=== PATIENT | female | born 1980 | race Caucasian/White ===

== ENCOUNTER 2016-05-15 20:14 | Emergency (ER) | payer BC ==
--- NOTE | 2016-05-15 23:57 | DIAGNOSTIC IMAGING REPORT ---
PROCEDURE: XR CHEST 2 VIEW INDICATION: Compared to chest x-ray on 01/17/2014. TECHNIQUE: PA and lateral views. COMPARISON: None. FINDINGS: Lungs are clear. Heart and mediastinum are normal. Postoperative changes and fusion of the lower cervical spine. Thorax is otherwise normal. IMPRESSION: 1. Negative chest.
--- NOTE | 2016-05-15 23:59 | DIAGNOSTIC IMAGING REPORT ---
PROCEDURE: US ABDOMEN ULTRASOUND-LIMITED INDICATION: RUQ PAIN TECHNIQUE: Mcleod scale and color Doppler sonographic images of the abdomen were obtained. COMPARISON: None. FINDINGS: Gallbladder is partially contracted. No evidence of gallstones. Common duct is normal (3 mm). Portions of the liver, pancreas, and right kidney are seen, and are normal. IMPRESSION: 1. Negative ultrasound of the gallbladder and right upper quadrant.
--- NOTE | 2016-05-16 00:17 | DIAGNOSTIC IMAGING REPORT ---
PROCEDURE: CT ABD/PELVIS WITH CONTRAST INDICATION: Abdominal pain. Cough. History of appendectomy and hysterectomy. TECHNIQUE: 125 ml of Isovue 300 were injected intravenously and axial images were obtained of the entire abdomen and pelvis with sagittal and coronal reformations. COMPARISON: Compared to abdominal ultrasound earlier in the day (05/15/2016). FINDINGS: ABDOMEN: Gallbladder is mildly contracted. Liver, spleen, pancreas, kidneys, and aorta are normal. Bowel pattern is normal. PELVIS: Status post hysterectomy. Adnexal structures appear normal. No evidence of free fluid. IMPRESSION: 1. Mildly contracted gallbladder (nonspecific finding). 2. Status post hysterectomy. 3. Otherwise negative CT abdomen and pelvis. 4. Findings discussed with Dr. Karsten Mathis. All CT scans at this facility use dose modulation, iterative reconstruction, and/or weight-based dosing when appropriate to reduce radiation dose to as low as reasonably achievable.
--- NOTE | 2016-05-16 01:41 | ED ORDER SUMMARY ---
..... Patient: NADINE PERRY OrderSheet [facility] VisitID: [id number] [place] [address] 36y, F Registration Date/Time: 05/15/2016 ORDER SHEET Weight: 68.0 kg (stated) Allergies: Amytriptilline, ASA, Benzos, Latex, Reglan, Sulfa Drugs, Toradol, Valium, Vicodin, Xanax GENERAL ORDERS: Chest 2V Urgent (22:07 05/15/2016 EKoroleva P.A.-C) (Ack 22:10 MSouse ER Tech1) (22:25 MCampbell) US Abdomen Limited (No) Urgent (22:15 05/15/2016 EKoroleva P.A.-C) (22:24 MCampbell) CBC w Diff Urgent (22:15 05/15/2016 EKoroleva P.A.-C) (Ack 22:25 NHouse ER Tech1) (22:38 RCollier R.N.) CMP Urgent (22:15 05/15/2016 EKoroleva P.A.-C) (Ack 22:25 NHouse ER Tech1) (22:38 RCollier R.N.) Lipase Urgent (22:15 05/15/2016 EKoroleva P.A.-C) (Ack 22:25 NHouse ER Tech1) (22:38 RCollier R.N.) UA-Culture if indicated Urgent (22:59 05/15/2016 EKoroleva P.A.-C) (Ack 23:10 LMuller) (0:56 LMuller) Amylase Urgent (23:10 05/15/2016 Mauricio WYNNE) (23:10 LMuller) CT Abd/Pel w Cont (No) (See report) Urgent (23:17 05/15/2016 Mauricio WYNNE) (Ack 23:19 LMuller) (23:33 RCollier R.N.) D-Dimer Urgent (00:06 05/16/2016 Mauricio WYNNE) (0:19 LMuller) MEDICATION ORDERS: IV FLUIDS: Dilaudid IV 0.5 mg (HIGH ALERT MEDICATION, NOW) (22:23 05/15/2016 EKoroleva P.A.-C) (Ack 22:24 RCollier R.N.) (22:36 RCollier R.N.) IV Saline Lock (22:23 05/15/2016 EKoroleva P.A.-C) (Ack 22:24 RCollier R.N.) Zofran IV 4 mg (NOW) (22:36 05/15/2016 RCollier R.N. per protocol) (22:38 RCollier R.N.) Dilaudid IV 0.5 mg (HIGH ALERT MEDICATION, NOW) (23:17 05/15/2016 Mauricio WYNNE) (Ack 23:20 RCollier R.N.) (23:30 RCollier R.N.) IV NS : initial bolus 500 mL (1000 mL/hr), then 125 mL/hr for 4h (NOW); Urgent (23:18 05/15/2016 Mauricio WYNNE) (Ack 23:20 RCollier R.N.) (23:31 RCollier R.N.) Dilaudid IV 0.5 mg (HIGH ALERT MEDICATION, NOW) (01:31 05/16/2016 RCollier R.N. verbal order read back to Mauricio WYNNE) (1:31 RCollier R.N.) ORDER SHEET NOTES: [Electronically signed by Amanda Brar R.N. (02:04 05/16/2016)] [Electronically signed by Karsten Mathis MD (18:52 05/19/2016)] [Electronically locked/signed by Amanda Brar R.N. (02:04 05/16/2016)]
--- NOTE | 2016-05-16 01:41 | ED NURSING NOTES ---
Clinical Report - Nurses [facility] [place] [address] 05/15/2016 20:15 Patient: NADINE PERRY TRIAGE Triage time 22:04. Acuity: LEVEL 4. Chief Complaint: (right sided rib pain.). --22: Amanda Brar R.N. 22:04 05/15/16. BP: 109/78. HR: 78. RR: 18. O2 saturation: 100% on room air. Temp: 98 F (oral). Gilbert-Lozano pain scale: 8/10. --22: Amanda Brar R.N. Weight: 68 kg stated. Height/Length: 64 inches Per Patient. BMI: 25.8. --22: Amanda Brar R.N. Medications None. --22: Amanda Brar R.N. Allergies Amytriptilline. ASA. Benzos. Latex. Reglan. Sulfa Drugs. Toradol. Valium. Vicodin. Xanax. --22: Amanda Brar R.N. History Arrived by private vehicle. Historian: patient. Primary physician (Ayush). ( pt reports having cough and two days ago ribs on right side began and is getting worse today.). Onset. (about 2 days ago). Treatment FOOD TASTER: None. PAST MEDICAL HX: Immunizations: up-to-date. SOCIAL HX: Light tobacco smoker (cigarette)- less than 1/2 a pack per day. No alcohol use or drug use. NUTRITIONAL RISK ASSESSMENT: The nutritional risk assessment revealed no deficiencies. FUNCTIONAL ASSESSMENT: Functional assessment: no impairments noted. --22:10 Amanda Brar R.N. PROBLEMS: Intervertebral Disc Disease. Lumbar Radiculopathy. Viral Disease. Crush Injury, Lower Extremity. Migraine Headache. Lifestyle / Substance Problems. Lumbar Strain. Anxiety Reaction. Depression. Fibromyalgia. --22:08 Amanda Brar R.N. ADDITIONAL SURGERIES: Adenoidectomy. . Eye surgery . Fusion. Hemrrhoidectomy. Hysterectomy. Oophorectomy. Salpingectomy. --22:08 Amanda Brar R.N. Interventions ID band on patient. To treatment room. --22:10 Amanda Brar R.N. PHYSICAL ASSESSMENT Ambulatory to room. Patient gowned. GENERAL / NEURO / PSYCH: Alert. Oriented X 4. Appears in pain. HEENT: Mucous membranes are pink. RESPIRATORY: Respirations not labored. CVS: Capillary refill less than 2 seconds. SKIN: Skin is warm and dry. --22:10 Amanda Brar R.N. NURSING PROGRESS NOTES Head of bed elevated. Two patient identifiers checked. Call light placed in reach. Side rails up x 1. Bed placed in lowest position. Brakes of bed on. --22:10 Amanda Brar R.N. Patient ready for evaluation- chart flagged. --22:10 Amanda Brar R.N. Patient returned from radiology by wheelchair with tech. --22:23 Amanda Brar R.N. 22:34 05/15/2016 Site #1 started via IV in the right antecubital space with an 20g angiocath, with aseptic technique and good blood return; one attempt. Blood drawn: rainbow set. Labeled in the presence of the patient and sent to the lab. Saline lock flushed with 10 mL saline. --22:36 Amanda Brar R.N. 22:35 05/15/2016 Dilaudid (HYDROmorphone HCl PF) IVP 0.5 mg given over 1 minute(s) via site #1. Allergies verified, confirmed 5 rights and sedative warning given to the patient. IV patency established. IV site checked: no pain, redness, or swelling. IV flushed thoroughly pre- and post-medication administration. IVP given by RN. --22:36 Amanda Brar R.N. 22:36 05/15/2016 Zofran (Ondansetron HCl) IVP 4 mg given over 30 second(s) via site #1. Allergies verified and confirmed 5 rights. IV patency established. IV site checked: no pain, redness, or swelling. IV flushed thoroughly pre- and post-medication administration. IVP given by RN. --22:38 Amanda Brar R.N. 23:27 05/15/2016 Started bag #1 1000 mL IV Fluids IV NS (Saline); bolus of 500 mL over 30 minute(s) via site #1 via IV pump. Allergies verified and confirmed 5 rights. IV patency established. IV site checked: no pain, redness, or swelling. IV flushed thoroughly pre- and post-medication administration. --23:31 Amanda Brar R.N. 23:28 05/15/2016 Dilaudid (HYDROmorphone HCl PF) IVP 0.5 mg given over 30 second(s) via site #1. Allergies verified, confirmed 5 rights and sedative warning given to the patient. IV patency established. IV site checked: no pain, redness, or swelling. IV flushed thoroughly pre- and post-medication administration. IVP given by RN. --23:30 Amanda Brar R.N. 23:30 05/15/2016 IV Fluids IV NS Discontinued: bag #1 STOPPED. Total amount infused: 20 mL. IV patency established. IV site checked: no pain, redness, or swelling. IV flushed thoroughly. --23:33 Amanda Brar R.N. ( pt ambulates to restroom to obtain urine sample.). --00:37 Amanda Brar R.N. 01:05/16/2016 Started bag #1 1000 mL IV Fluids IV NS (Saline); at 1000 mL/hr via site #1 via IV pump. Allergies verified and confirmed 5 rights. IV patency established. IV site checked: no pain, redness, or swelling. IV flushed thoroughly pre- and post-medication administration (restarted bag #1). --01:30 Amanda Brar R.N. 01:05/16/16. BP: 98/73. HR: 81. RR: 15. O2 saturation: 98% on room air. Gilbert-Lozano pain scale: 6/10. --01:30 Amanda Brar R.N. 01:31 05/16/2016 Dilaudid (HYDROmorphone HCl PF) IVP 0.5 mg given over 30 second(s) via site #1. Allergies verified, confirmed 5 rights and sedative warning given to the patient. IV patency established. IV site checked: no pain, redness, or swelling. IV flushed thoroughly pre- and post-medication administration. IVP given by RN. --01:31 Amanda Brar R.N. 02:01 05/16/2016 IV Fluids IV NS Discontinued: bag #1 STOPPED. Total amount infused: 500 mL. IV patency established. IV site checked: no pain, redness, or swelling. IV flushed thoroughly. --02:01 Amanda Brar R.N. 02:02 05/16/2016 Site #1 removed upon discharge. Catheter intact. Manual pressure and bandage applied. --02:02 Amanda Brar R.N. DISPOSITION / DISCHARGE 01:53 05/16/16. BP: 95/65. HR: 76. RR: 16. O2 saturation: 98% on room air. Temp: 98.9 F (oral). Gilbert-Lozano pain scale: 4/10. --01:54 Amanda Brar R.N. Condition at departure: stable. No learning barriers present. Discharge instructions provided and reviewed with the patient. Reviewed medication(s) side effects, precautions, dosing and course information. Prescription(s) given to the patient. Patient verbalized understanding. Written instructions provided in Pashto. The patient was discharged home and accompanied by night supervisor. She left the Emergency Department ambulatory and via private vehicle. Sports Attorney driving. --02:03 Amanda Brar R.N. Locked/Released at 05/16/2016 2:04 by Amanda Brar R.N.
--- NOTE | 2016-05-16 01:41 | ED CLINICAL REPORT ---
Clinical Report - Physicians/Mid Levels [facility] [address] [place] [address] 05/15/2016 20:15 Patient: NADINE PERRY Time Seen: 22:43 May 15 2016. Arrived- By private vehicle. Historian- patient. HISTORY OF PRESENT ILLNESS Chief Complaint: ABDOMINAL PAIN. It is described as "pain" and it is described as located in the right upper quadrant. This started 2 days BLOOD TYPER and is still present. It was abrupt in onset and has been waxing/waning. (patient reports right upper quadrant pain over the last 2 days, worsening, with nausea no emesis, worsened with food. Worsen with deep inspiration. She has had a cough a few times recently. No fevers. No diarrhea. No sick contacts. No foreign travel. History of nephrolithiasis, however very distant unsure if this feels the same.). REVIEW OF SYSTEMS No constipation, black stools, difficulty with urination, pain with urination or urinary frequency. No sore throat, blurred vision, chest pain or difficulty breathing. All systems otherwise negative, except as recorded above. PAST HISTORY Problems: Intervertebral Disc Disease. Lumbar Radiculopathy. Viral Disease. Crush Injury, Lower Extremity. Tetanus Status. Migraine Headache. Vaginal Discharge. Pelvic Pain. Lifestyle / Substance Problems. Contusion. Lower Extremity Pain. Back Pain. Lumbar Strain. Myofascial Strain. Anxiety Reaction. Depression. Fibromyalgia. Headache. Immunizations. LNMP - Last Normal Menstrual Period. Additional Surgeries: Adenoidectomy. . Eye surgery . Fusion. Hemrrhoidectomy. Hysterectomy. Oophorectomy. Salpingectomy. Medications: None. Allergies: Amytriptilline. ASA. Benzos. Latex. Reglan. Sulfa Drugs. Toradol. Valium. Vicodin. Xanax. SOCIAL HISTORY Smoker- current status unknown. No alcohol use. FAMILY HISTORY Denies family medical history. ADDITIONAL NOTES The nursing notes have been reviewed. PHYSICAL EXAM Vital Signs: 05/15/2016 22:04 BP: 109/78. HR: 78. RR: 18. O2 saturation: 100%. Temp: 98 F. Gilbert-Lozano pain scale: 8/10. Appearance: Alert. ENT: Ears normal. Nose normal. CVS: Normal heart rate and rhythm. Heart sounds normal. Respiratory: No respiratory distress. Breath sounds normal. Abdomen: Soft. Mild tenderness in the right upper quadrant and epigastric area with guarding present. Positive Carroll's sign. Back: Normal inspection. No CVA tenderness. Skin: Skin warm. Normal skin color. Neuro: Oriented X 3. LABS, X-RAYS, AND EKG Abdominal CT: IMPRESSION: 1. Mildly contracted gallbladder (nonspecific finding). 2. Status post hysterectomy. 3. Otherwise negative CT abdomen and pelvis. The study was interpreted contemporaneously by me and discussed with the radiologist. Abdominal Sonogram: No acute changes. (discussed with the US tech). The study was independently viewed by me. Laboratory Tests: UA-Culture if indicated: (LYNN: 05/16/2016 00:38) ( MsgRcvd 05/16/2016 01:04) Final results Test Result Flag Units (Reference) URINE COLOR YELLOW URINE APPEARANCE CLEAR URINE GLUCOSE NEGATIVE (NEGATIVE) URINE BILIRUBIN NEGATIVE (NEGATIVE) URINE KETONE NEGATIVE (NEGATIVE) URINE SPECIFIC GRAVITY <= 1.005 L (1.010-1.030) URINE PH 7.0 (5.0-8.0) URINE PROTEIN NEGATIVE (NEGATIVE) URINE UROBILINOGEN 0.2 EU/dL (0.2-1.0) URINE NITRITE NEGATIVE (NEGATIVE) URINE BLOOD NEGATIVE (NEGATIVE) URINE LEUK ESTERASE NEGATIVE (NEGATIVE) URINE RBC 0-1 rbc/hpf (0-1) URINE WBC 0-1 wbc/hpf (0-1) URINE EPITHELIAL CELLS 0-1 EPI/hpf (0-5) URINE BACTERIA NONE SEEN (NONE SEEN) URINE COMMENT CULT NOT INDICATED URINE CULTURES ARE SET-UP BASED ON THE FOLLOWING CRITERIA:POSITIVE NITRITEPOSITIVE LEUKOCYTE ESTERASEGREATER THAN 10 WHITE BLOOD CELLSMODERATE (2+) OR GREATER BACTERIA [id number]: (LYNN: 05/16/2016 00:01) ( MsgRcvd 05/16/2016 00:19) Final results Test Result Flag Units (Reference) D-DIMER QUANTITATIVE < 0.27 L ug/mLFEU (0.27-0.52) The primary value of this quantitative assay relates toits negative predictive value (i.e. exclusion) of pulmonaryembolism/deep vein thrombosis/DIC.Elevated levels of d-dimer may also occur with:, age, cancer, inflammation, liver disease,post-op, infection, hematoma, coronary disease, peripheralarteriopathy, bleeding disorders and thrombolytic treatment.Results should be correlated with other clinical andradiological data.Testing Methodology: Latex Immunoassay CBC w Diff: (LYNN: 05/15/2016 22:34) ( [facility] 05/15/2016 22:39) Final results Test Result Flag Units (Reference) WHITE BLOOD COUNT 11.8 H K/uL (4.5-11.5) RED BLOOD COUNT 4.68 M/uL (4.00-5.20) HEMOGLOBIN 13.4 gm/dL (12.0-16.0) HEMATOCRIT 42.1 % (36.0-46.0) MEAN CELL VOLUME 90 fL (80-100) MEAN CORPUSCULAR HGB 29 pg (26-34) MEAN CORPUSCULAR HGB CONC 32 g/dL (31-37) RED CELL DISTRIBUTION WIDTH 12.9 % (11.6-14.8) PLATELET COUNT 355 K/uL (150-400) LYMPH % 25.8 % (25-40) MONO % 3.5 % (3-14) GRANULOCYTE % 70.7 (53-90) Amylase: (LYNN: 05/15/2016 23:10) ( [facility] 05/15/2016 23:27) Final results Test Result Flag Units (Reference) AMYLASE 61 U/L (25-115) CMP: (LYNN: 05/15/2016 22:34) ( MsgRcvd 05/15/2016 22:52) Final results Test Result Flag Units (Reference) GLUCOSE 85 mg/dL (70-110) BUN 16 mg/dL (7-18) CREATININE 0.9 mg/dL (0.6-1.3) Estimated GFR >60 mL/min Estimated GFR- >60 mL/min Note: Persistent reduction over 3 months in eGFR<60 mL/min/1.73 m2 defines CKD. Patients with eGFR values>=60 mL/min/1.73 m2 may also have CKD if evidence ofpersistent proteinuria. Additional information may be foundat www.kidney.org. SODIUM 140 mmol/L (136-145) POTASSIUM 3.6 mmol/L (3.5-5.1) CHLORIDE 104 mmol/L (98-107) CARBON DIOXIDE 26 mmol/L (21-32) CALCIUM 9.4 mg/dL (8.5-10.1) TOTAL PROTEIN 7.9 g/dL (6.4-8.2) ALBUMIN 4.2 g/dL (3.3-5.0) BILIRUBIN, TOTAL 0.5 mg/dL (0.0-1.0) ALKALINE PHOSPHATASE 137 H U/L (46-116) AST (SGOT) 15 U/L (15-37) ALT (SGPT) 25 U/L (12-78) LIPASE 161 U/L (73-393) . PROGRESS AND PROCEDURES Course of Care: Patient is stable. Patient/family counseled. Old medical records reviewed. Disposition: Discharged. Condition: stable. CLINICAL IMPRESSION Acute right upper quadrant abdominal pain of unknown cause. Possible muscle strain of the anterior chest wall. INSTRUCTIONS No driving or operating machinery while taking medication. Sedative medication was given during your visit. Drink plenty of fluids. Warnings: Further evaluation is necessary. GENERAL WARNINGS: Return or contact your physician immediately if your condition worsens or changes unexpectedly, if not improving as expected, or if other problems arise. Understanding of the discharge instructions verbalized by patient. Follow-up with: [facility], Family Practice, , [address] [place] [address], [place] [address] Follow up today. Call for an appointment. (Electronically signed by Karsten Mathis MD 05/19/2016 18:52)
--- NOTE | 2016-05-16 01:41 | ED ORDER SUMMARY ---
..... Patient: NADINE PERRY OrderSheet [facility] VisitID: [id number] [place] [address] 36y, F Registration Date/Time: 05/15/2016 ORDER SHEET Weight: 68.0 kg (stated) Allergies: Amytriptilline, ASA, Benzos, Latex, Reglan, Sulfa Drugs, Toradol, Valium, Vicodin, Xanax GENERAL ORDERS: Chest 2V Urgent (22:07 05/15/2016 EKoroleva P.A.-C) (Ack 22:10 PAouse ER Tech1) (22:25 MCampbell) US Abdomen Limited (No) Urgent (22:15 05/15/2016 EKoroleva P.A.-C) (22:24 MCampbell) CBC w Diff Urgent (22:15 05/15/2016 EKoroleva P.A.-C) (Ack 22:25 NHouse ER Tech1) (22:38 RCollier R.N.) CMP Urgent (22:15 05/15/2016 EKoroleva P.A.-C) (Ack 22:25 NHouse ER Tech1) (22:38 RCollier R.N.) Lipase Urgent (22:15 05/15/2016 EKoroleva P.A.-C) (Ack 22:25 NHouse ER Tech1) (22:38 RCollier R.N.) UA-Culture if indicated Urgent (22:59 05/15/2016 EKoroleva P.A.-C) (Ack 23:10 LMuller) (0:56 LMuller) Amylase Urgent (23:10 05/15/2016 Mauricio WYNNE) (23:10 LMuller) CT Abd/Pel w Cont (No) (See report) Urgent (23:17 05/15/2016 Mauricio WYNNE) (Ack 23:19 LMuller) (23:33 RCollier R.N.) D-Dimer Urgent (00:06 05/16/2016 Mauricio WYNNE) (0:19 LMuller) MEDICATION ORDERS: IV FLUIDS: Dilaudid IV 0.5 mg (HIGH ALERT MEDICATION, NOW) (22:23 05/15/2016 EKoroleva P.A.-C) (Ack 22:24 RCollier R.N.) (22:36 RCollier R.N.) IV Saline Lock (22:23 05/15/2016 EKoroleva P.A.-C) (Ack 22:24 RCollier R.N.) Zofran IV 4 mg (NOW) (22:36 05/15/2016 RCollier R.N. per protocol) (22:38 RCollier R.N.) Dilaudid IV 0.5 mg (HIGH ALERT MEDICATION, NOW) (23:17 05/15/2016 Mauricio WYNNE) (Ack 23:20 RCollier R.N.) (23:30 RCollier R.N.) IV NS : initial bolus 500 mL (1000 mL/hr), then 125 mL/hr for 4h (NOW); Urgent (23:18 05/15/2016 Mauricio WYNNE) (Ack 23:20 RCollier R.N.) (23:31 RCollier R.N.) Dilaudid IV 0.5 mg (HIGH ALERT MEDICATION, NOW) (01:31 05/16/2016 RCollier R.N. verbal order read back to Mauricio WYNNE) (1:31 RCollier R.N.) ORDER SHEET NOTES: [Electronically signed by Amanda Brar R.N. (02:04 05/16/2016)] [Electronically signed by Karsten Mathis MD (18:52 05/19/2016)] [Electronically locked/signed by Amanda Brar R.N. (02:04 05/16/2016)]
--- NOTE | 2016-05-16 01:41 | ED NURSING NOTES ---
Clinical Report - Nurses [facility] [place] [address] 05/15/2016 20:15 Patient: NADINE PERRY TRIAGE Triage time 22:04. Acuity: LEVEL 4. Chief Complaint: (right sided rib pain.). --22: Amanda Brar R.N. 22:04 05/15/16. BP: 109/78. HR: 78. RR: 18. O2 saturation: 100% on room air. Temp: 98 F (oral). Gilbert-Lozano pain scale: 8/10. --22: Amanda Brar R.N. Weight: 68 kg stated. Height/Length: 64 inches Per Patient. BMI: 25.8. --22: Amanda Brar R.N. Medications None. --22: Amanda Brar R.N. Allergies Amytriptilline. ASA. Benzos. Latex. Reglan. Sulfa Drugs. Toradol. Valium. Vicodin. Xanax. --22: Amanda Brar R.N. History Arrived by private vehicle. Historian: patient. Primary physician (Ayush). ( pt reports having cough and two days ago ribs on right side began and is getting worse today.). Onset. (about 2 days ago). Treatment STREET ENGINEER: None. PAST MEDICAL HX: Immunizations: up-to-date. SOCIAL HX: Light tobacco smoker (cigarette)- less than 1/2 a pack per day. No alcohol use or drug use. NUTRITIONAL RISK ASSESSMENT: The nutritional risk assessment revealed no deficiencies. FUNCTIONAL ASSESSMENT: Functional assessment: no impairments noted. --22:10 Amanda Brar R.N. PROBLEMS: Intervertebral Disc Disease. Lumbar Radiculopathy. Viral Disease. Crush Injury, Lower Extremity. Migraine Headache. Lifestyle / Substance Problems. Lumbar Strain. Anxiety Reaction. Depression. Fibromyalgia. --22:08 Amanda Brar R.N. ADDITIONAL SURGERIES: Adenoidectomy. . Eye surgery . Fusion. Hemrrhoidectomy. Hysterectomy. Oophorectomy. Salpingectomy. --22:08 Amanda Brar R.N. Interventions ID band on patient. To treatment room. --22:10 Amanda Brar R.N. PHYSICAL ASSESSMENT Ambulatory to room. Patient gowned. GENERAL / NEURO / PSYCH: Alert. Oriented X 4. Appears in pain. HEENT: Mucous membranes are pink. RESPIRATORY: Respirations not labored. CVS: Capillary refill less than 2 seconds. SKIN: Skin is warm and dry. --22:10 Amanda Brar R.N. NURSING PROGRESS NOTES Head of bed elevated. Two patient identifiers checked. Call light placed in reach. Side rails up x 1. Bed placed in lowest position. Brakes of bed on. --22:10 Amanda Brar R.N. Patient ready for evaluation- chart flagged. --22:10 Amanda Brar R.N. Patient returned from radiology by wheelchair with tech. --22:23 Amanda Brar R.N. 22:34 05/15/2016 Site #1 started via IV in the right antecubital space with an 20g angiocath, with aseptic technique and good blood return; one attempt. Blood drawn: rainbow set. Labeled in the presence of the patient and sent to the lab. Saline lock flushed with 10 mL saline. --22:36 Amanda Brar R.N. 22:35 05/15/2016 Dilaudid (HYDROmorphone HCl PF) IVP 0.5 mg given over 1 minute(s) via site #1. Allergies verified, confirmed 5 rights and sedative warning given to the patient. IV patency established. IV site checked: no pain, redness, or swelling. IV flushed thoroughly pre- and post-medication administration. IVP given by RN. --22:36 Amanda Brar R.N. 22:36 05/15/2016 Zofran (Ondansetron HCl) IVP 4 mg given over 30 second(s) via site #1. Allergies verified and confirmed 5 rights. IV patency established. IV site checked: no pain, redness, or swelling. IV flushed thoroughly pre- and post-medication administration. IVP given by RN. --22:38 Amanda Brar R.N. 23:27 05/15/2016 Started bag #1 1000 mL IV Fluids IV NS (Saline); bolus of 500 mL over 30 minute(s) via site #1 via IV pump. Allergies verified and confirmed 5 rights. IV patency established. IV site checked: no pain, redness, or swelling. IV flushed thoroughly pre- and post-medication administration. --23:31 Amanda Brar R.N. 23:28 05/15/2016 Dilaudid (HYDROmorphone HCl PF) IVP 0.5 mg given over 30 second(s) via site #1. Allergies verified, confirmed 5 rights and sedative warning given to the patient. IV patency established. IV site checked: no pain, redness, or swelling. IV flushed thoroughly pre- and post-medication administration. IVP given by RN. --23:30 Amanda Brar R.N. 23:30 05/15/2016 IV Fluids IV NS Discontinued: bag #1 STOPPED. Total amount infused: 20 mL. IV patency established. IV site checked: no pain, redness, or swelling. IV flushed thoroughly. --23:33 Amanda Brar R.N. ( pt ambulates to restroom to obtain urine sample.). --00:37 Amanda Brar R.N. 01:05/16/2016 Started bag #1 1000 mL IV Fluids IV NS (Saline); at 1000 mL/hr via site #1 via IV pump. Allergies verified and confirmed 5 rights. IV patency established. IV site checked: no pain, redness, or swelling. IV flushed thoroughly pre- and post-medication administration (restarted bag #1). --01:30 Amanda Brar R.N. 01:05/16/16. BP: 98/73. HR: 81. RR: 15. O2 saturation: 98% on room air. Gilbert-Lozano pain scale: 6/10. --01:30 Amanda Brar R.N. 01:31 05/16/2016 Dilaudid (HYDROmorphone HCl PF) IVP 0.5 mg given over 30 second(s) via site #1. Allergies verified, confirmed 5 rights and sedative warning given to the patient. IV patency established. IV site checked: no pain, redness, or swelling. IV flushed thoroughly pre- and post-medication administration. IVP given by RN. --01:31 Amanda Brar R.N. 02:01 05/16/2016 IV Fluids IV NS Discontinued: bag #1 STOPPED. Total amount infused: 500 mL. IV patency established. IV site checked: no pain, redness, or swelling. IV flushed thoroughly. --02:01 Amanda Brar R.N. 02:02 05/16/2016 Site #1 removed upon discharge. Catheter intact. Manual pressure and bandage applied. --02:02 Amanda Brar R.N. DISPOSITION / DISCHARGE 01:53 05/16/16. BP: 95/65. HR: 76. RR: 16. O2 saturation: 98% on room air. Temp: 98.9 F (oral). Gilbert-Lozano pain scale: 4/10. --01:54 Amanda Brar R.N. Condition at departure: stable. No learning barriers present. Discharge instructions provided and reviewed with the patient. Reviewed medication(s) side effects, precautions, dosing and course information. Prescription(s) given to the patient. Patient verbalized understanding. Written instructions provided in [place]. The patient was discharged home and accompanied by cooling room attendant. She left the Emergency Department ambulatory and via private vehicle. News Editor driving. --02:03 Amanda Brar R.N. Locked/Released at 05/16/2016 2:04 by Amanda Brar R.N.
--- NOTE | 2016-05-16 01:41 | ED CLINICAL REPORT ---
Clinical Report - Physicians/Mid Levels [facility] [address] [place] [address] 05/15/2016 20:15 Patient: NADINE PERRY Time Seen: 22:43 May 15 2016. Arrived- By private vehicle. Historian- patient. HISTORY OF PRESENT ILLNESS Chief Complaint: ABDOMINAL PAIN. It is described as "pain" and it is described as located in the right upper quadrant. 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 It was abrupt in onset and has been waxing/waning. (patient reports right upper quadrant pain over the last 2 days, worsening, with nausea no emesis, worsened with food. Worsen with deep inspiration. She has had a cough a few times recently. No fevers. No diarrhea. No sick contacts. No foreign travel. History of nephrolithiasis, however very distant unsure if this feels the same.). REVIEW OF SYSTEMS No constipation, black stools, difficulty with urination, pain with urination or urinary frequency. No sore throat, blurred vision, chest pain or difficulty breathing. All systems otherwise negative, except as recorded above. PAST HISTORY Problems: Intervertebral Disc Disease. Lumbar Radiculopathy. Viral Disease. Crush Injury, Lower Extremity. Tetanus Status. Migraine Headache. Vaginal Discharge. Pelvic Pain. Lifestyle / Substance Problems. Contusion. Lower Extremity Pain. Back Pain. Lumbar Strain. Myofascial Strain. Anxiety Reaction. Depression. Fibromyalgia. Headache. Immunizations. LNMP - Last Normal Menstrual Period. Additional Surgeries: Adenoidectomy. . Eye surgery . Fusion. Hemrrhoidectomy. Hysterectomy. Oophorectomy. Salpingectomy. Medications: None. Allergies: Amytriptilline. ASA. Benzos. Latex. Reglan. Sulfa Drugs. Toradol. Valium. Vicodin. Xanax. SOCIAL HISTORY Smoker- current status unknown. No alcohol use. FAMILY HISTORY Denies family medical history. ADDITIONAL NOTES The nursing notes have been reviewed. PHYSICAL EXAM Vital Signs: 05/15/2016 22:04 BP: 109/78. HR: 78. RR: 18. O2 saturation: 100%. Temp: 98 F. Gilbert-Lozano pain scale: 8/10. Appearance: Alert. ENT: Ears normal. Nose normal. CVS: Normal heart rate and rhythm. Heart sounds normal. Respiratory: No respiratory distress. Breath sounds normal. Abdomen: Soft. Mild tenderness in the right upper quadrant and epigastric area with guarding present. Positive Carroll's sign. Back: Normal inspection. No CVA tenderness. Skin: Skin warm. Normal skin color. Neuro: Oriented X 3. LABS, X-RAYS, AND EKG Abdominal CT: IMPRESSION: 1. Mildly contracted gallbladder (nonspecific finding). 2. Status post hysterectomy. 3. Otherwise negative CT abdomen and pelvis. The study was interpreted contemporaneously by me and discussed with the radiologist. Abdominal Sonogram: No acute changes. (discussed with the US tech). The study was independently viewed by me. Laboratory Tests: UA-Culture if indicated: (LYNN: 05/16/2016 00:38) ( MsgRcvd 05/16/2016 01:04) Final results Test Result Flag Units (Reference) URINE COLOR YELLOW URINE APPEARANCE CLEAR URINE GLUCOSE NEGATIVE (NEGATIVE) URINE BILIRUBIN NEGATIVE (NEGATIVE) URINE KETONE NEGATIVE (NEGATIVE) URINE SPECIFIC GRAVITY <= 1.005 L (1.010-1.030) URINE PH 7.0 (5.0-8.0) URINE PROTEIN NEGATIVE (NEGATIVE) URINE UROBILINOGEN 0.2 EU/dL (0.2-1.0) URINE NITRITE NEGATIVE (NEGATIVE) URINE BLOOD NEGATIVE (NEGATIVE) URINE LEUK ESTERASE NEGATIVE (NEGATIVE) URINE RBC 0-1 rbc/hpf (0-1) URINE WBC 0-1 wbc/hpf (0-1) URINE EPITHELIAL CELLS 0-1 EPI/hpf (0-5) URINE BACTERIA NONE SEEN (NONE SEEN) URINE COMMENT CULT NOT INDICATED URINE CULTURES ARE SET-UP BASED ON THE FOLLOWING CRITERIA:POSITIVE NITRITEPOSITIVE LEUKOCYTE ESTERASEGREATER THAN 10 WHITE BLOOD CELLSMODERATE (2+) OR GREATER BACTERIA [id number]: (LYNN: 05/16/2016 00:01) ( MsgRcvd 05/16/2016 00:19) Final results Test Result Flag Units (Reference) D-DIMER QUANTITATIVE < 0.27 L ug/mLFEU (0.27-0.52) The primary value of this quantitative assay relates toits negative predictive value (i.e. exclusion) of pulmonaryembolism/deep vein thrombosis/DIC.Elevated levels of d-dimer may also occur with:, age, cancer, inflammation, liver disease,post-op, infection, hematoma, coronary disease, peripheralarteriopathy, bleeding disorders and thrombolytic treatment.Results should be correlated with other clinical andradiological data.Testing Methodology: Latex Immunoassay CBC w Diff: (LYNN: 05/15/2016 22:34) ( [facility]) Final results Test Result Flag Units (Reference) WHITE BLOOD COUNT 11.8 H K/uL (4.5-11.5) RED BLOOD COUNT 4.68 M/uL (4.00-5.20) HEMOGLOBIN 13.4 gm/dL (12.0-16.0) HEMATOCRIT 42.1 % (36.0-46.0) MEAN CELL VOLUME 90 fL (80-100) MEAN CORPUSCULAR HGB 29 pg (26-34) MEAN CORPUSCULAR HGB CONC 32 g/dL (31-37) RED CELL DISTRIBUTION WIDTH 12.9 % (11.6-14.8) PLATELET COUNT 355 K/uL (150-400) LYMPH % 25.8 % (25-40) MONO % 3.5 % (3-14) GRANULOCYTE % 70.7 (53-90) Amylase: (LYNN: 05/15/2016 23:10) ( [facility] 05/15/2016 23:27) Final results Test Result Flag Units (Reference) AMYLASE 61 U/L (25-115) CMP: (LYNN: 05/15/2016 22:34) ( MsgRcvd 05/15/2016 22:52) Final results Test Result Flag Units (Reference) GLUCOSE 85 mg/dL (70-110) BUN 16 mg/dL (7-18) CREATININE 0.9 mg/dL (0.6-1.3) Estimated GFR >60 mL/min Estimated GFR- >60 mL/min Note: Persistent reduction over 3 months in eGFR<60 mL/min/1.73 m2 defines CKD. Patients with eGFR values>=60 mL/min/1.73 m2 may also have CKD if evidence ofpersistent proteinuria. Additional information may be foundat www.kidney.org. SODIUM 140 mmol/L (136-145) POTASSIUM 3.6 mmol/L (3.5-5.1) CHLORIDE 104 mmol/L (98-107) CARBON DIOXIDE 26 mmol/L (21-32) CALCIUM 9.4 mg/dL (8.5-10.1) TOTAL PROTEIN 7.9 g/dL (6.4-8.2) ALBUMIN 4.2 g/dL (3.3-5.0) BILIRUBIN, TOTAL 0.5 mg/dL (0.0-1.0) ALKALINE PHOSPHATASE 137 H U/L (46-116) AST (SGOT) 15 U/L (15-37) ALT (SGPT) 25 U/L (12-78) LIPASE 161 U/L (73-393) . PROGRESS AND PROCEDURES Course of Care: Patient is stable. Patient/family counseled. Old medical records reviewed. Disposition: Discharged. Condition: stable. CLINICAL IMPRESSION Acute right upper quadrant abdominal pain of unknown cause. Possible muscle strain of the anterior chest wall. INSTRUCTIONS No driving or operating machinery while taking medication. Sedative medication was given during your visit. Drink plenty of fluids. Warnings: Further evaluation is necessary. GENERAL WARNINGS: Return or contact your physician immediately if your condition worsens or changes unexpectedly, if not improving as expected, or if other problems arise. Understanding of the discharge instructions verbalized by patient. Follow-up with: [facility], , [address] [place] [address], [place] [address] Follow up today. Call for an appointment. (Electronically signed by Karsten Mathis MD 05/19/2016 18:52)
--- NOTE | 2016-05-19 18:53 | ED MED RECONCILIATION SUMMARY ---
Patient: NADINE PERRY Medication Reconciliation Report [facility] VisitID: [id number] [address] [place] [address] 36y, F Registration Date/Time: 05/15/2016 Weight: 68.0 kg Height/Length: 64 in. BMI: 25.8 ALLERGIES: Amytriptilline, ASA, Benzos, Latex, Reglan, Sulfa Drugs, Toradol, Valium, Vicodin, Xanax The patient's Home Medications are listed below: NONE. The source(s) of the original Home Medication information: Not obtained. The following Medications were given to the patient in the Emergency Department: Dilaudid [IVP] IVP 0.5 mg, administered: 05/15/2016 10:35:00 PM Zofran [IVP] IVP 4 mg, administered: 05/15/2016 10:36:00 PM Dilaudid [IVP] IVP 0.5 mg, administered: 05/15/2016 11:28:00 PM IV NS IV Fluids bolus 500 mL over 30 minute(s), administered: 05/15/2016 11:27:00 PM IV NS IV Fluids bolus 0, then 1000 mL/hr, administered: 05/16/2016 1:30:00 AM Dilaudid [IVP] IVP 0.5 mg, administered: 05/16/2016 1:31:00 AM The following Medications were prescribed to the patient: None.
--- NOTE | 2016-05-19 18:53 | ED MAR SUMMARY ---
..... Medication Administration Record [facility] [address] [place] [address] Patient: NADINE PERRY Visit ID: [id number] 36y, F Weight: 68.0 kg Height/Length: 64 in BMI: 25.8 ALLERGIES: Amytriptilline, ASA, Benzos, Latex, Reglan, Sulfa Drugs, Toradol, Valium, Vicodin, Xanax Given 22:35 05/15/2016 Amanda Brar R.N. Medication Administered: DILAUDID [IVP] (HYDROMORPHONE HCL PF), Dose: 0.5 mg IVP over 1 minute(s), Site: #1 right AC. Medication Ordered: Dilaudid IV 0.5 mg (HIGH ALERT MEDICATION, NOW). Given 22:36 05/15/2016 Amanda Brar R.N. Medication Administered: ZOFRAN [IVP] (ONDANSETRON HCL), Dose: 4 mg IVP over 30 second(s), Site: #1 right AC. Medication Ordered: Zofran IV 4 mg (NOW). Start 23:27 05/15/2016 Amanda Brar R.N., Stop 23:30 05/15/2016 Amanda Brar R.N. Medication Administered: IV NS (SALINE), Dose: IV Fluids, Bolus: 500 mL over 30 minute(s), Dispensed: 1000 mL bag, Site: #1 right AC. Medication Ordered: IV NS : initial bolus 500 mL (1000 mL/hr), then 125 mL/hr for 4h (NOW); Urgent. Given 23:28 05/15/2016 Amanda Brar R.NNorah Medication Administered: DILAUDID [IVP] (HYDROMORPHONE HCL PF), Dose: 0.5 mg IVP over 30 second(s), Site: #1 right AC. Medication Ordered: Dilaudid IV 0.5 mg (HIGH ALERT MEDICATION, NOW). Start 01:30 05/16/2016 Amanda Brar R.N., Stop 02:05/16/2016 Amanda Brar R.N. Medication Administered: IV NS (SALINE), Dose: IV Fluids, Rate: 1000 mL/hr, Dispensed: 1000 mL bag, Site: #1 right AC. Medication Ordered: IV NS : initial bolus 500 mL (1000 mL/hr), then 125 mL/hr for 4h (NOW); Urgent. Given 01:31 05/16/2016 Amanda Brar R.NNorah Medication Administered: DILAUDID [IVP] (HYDROMORPHONE HCL PF), Dose: 0.5 mg IVP over 30 second(s), Site: #1 right AC. Medication Ordered: Dilaudid IV 0.5 mg (HIGH ALERT MEDICATION, NOW).
--- NOTE | 2016-05-19 18:53 | ED DISCHARGE INSTRUCTIONS ---
Patient: NADINE PERRY General Instructions [facility] VisitID: [id number] [place] [address] 36y, F Registration Date/Time: 05/15/2016 Acute right upper quadrant abdominal pain of unknown cause. INSTRUCTIONS No driving or operating machinery while taking medication. Sedative medication was given during your visit. Drink plenty of fluids. Warnings: Further evaluation is necessary. GENERAL WARNINGS: Return or contact your physician immediately if your condition worsens or changes unexpectedly, if not improving as expected, or if other problems arise. Understanding of the discharge instructions verbalized by patient. [place] [facility] [place] , [address] [place] [address], [place] [address] Follow up today. Call for an appointment. ADDITIONAL INFORMATION Abdominal Pain, Unknown Cause (Female) The exact cause of your abdominal (stomach) pain is not certain. This does not mean that this is something to worry about, or the right tests were not done. Everyone likes to know the exact cause of the problem, but sometimes with abdominal pain, there is no clear-cut cause, and this could be a good thing. The good news is that your symptoms can be treated, and you will feel better. Your condition does not seem serious now; however, sometimes the signs of a serious problem may take more time to appear. For this reason,it is important for you to watch for any new symptoms, problems,or worsening of your condition. Over the next few days, the abdominal pain may come and go, or be continuous. Other common symptoms can include nausea and vomiting. Sometimes it can be difficult to tell if you feel nauseous, you may just feel bad and not associate that feeling with nausea. Constipation, diarrhea, and a fever may go along with the pain. The pain may continue even if treated correctly over the following days. Depending on how things go, sometimes the cause can become clear and may require further or different treatment. Additional evaluations, medications, or tests may be needed. Home care Your health care provider may prescribe medications for pain, symptoms, or an infection. Follow the health care provider's instructions for taking these medications. General care Rest until your next exam. No strenuous activities. Try to find positions that ease discomfort. A small pillow placed on the abdomen may help relieve pain. Something warm on your abdomen (such as a heating pad) may help, but be careful not to burn yourself. Diet Do not force yourself to eat, especially if having cramps, vomiting, or diarrhea. Water is important so you do not get dehydrated. Soup may also be good. Sports drinks may also help, especially if they are not too acidic. Make sure you don't drink sugary drinks as this can make things worse. Take liquids in small amounts. Do not guzzle them. Caffeine sometimes makes the pain and cramping worse. Avoid dairy products if you have vomiting or diarrhea. Don't eat large amounts at a time. Wait a few minutes between bites. Eat a diet low in fiber (called a low-residue diet). Foods allowed include refined breads, white rice, fruit and vegetable juices without pulp, tender meats. These foods will pass more easily through the intestine. Avoid whole-grain foods, whole fruits and vegetables, meats, seeds and nuts, fried or fatty foods, dairy, alcohol and spicy foods until your symptoms go away. Follow-up care Follow up with your health care provider as instructed, or if your pain does not begin to improve in the next 24 hours. When to seek medical care Seek prompt medical care if any of the following occur: Pain gets worse or moves to the right lower abdomen New or worsening vomiting or diarrhea Swelling of the abdomen Unable to pass stool for more than three days Fever of 100.4F (38C) or higher, or as directed by your healthcare provider. Blood in vomit or bowel movements (dark red or black color) Jaundice (yellow color of eyes and skin) Weakness, dizziness Chest, arm, back, neck or jaw pain Unexpected vaginal bleeding or missed period Call 911 Call emergency services if any of the following occur: Trouble breathing Confusion Fainting or loss of consciousness Rapid heart rate Seizure Chest Strain A strain of the chest is due to stretching and tearing of the muscle fibers between the ribs. This may occur as a result of severe coughing, strenuous lifting or twisting injuries of the upper back. This usually causes increased pain with movement or deep breathing. This may take a few days to a few weeks to heal. Home Care: Rest. Avoid heavy lifting or strenuous exertion. Avoid any activity that causes pain. If you have a severe cough, use a cough syrup such as Robitussin DM (containing dextromethorphan) unless another cough medicine was prescribed. You may use acetaminophen (Tylenol) or ibuprofen (Motrin, Advil) to control pain, unless another medicine was prescribed. [ NOTE: If you have chronic liver or kidney disease or ever had a stomach ulcer or GI bleeding, talk with your doctor before using these medicines.] Follow Up with your doctor as directed. Get Prompt Medical Attention if any of the following occur: A change in the type of pain: if it feels different, becomes more severe, lasts longer, or begins to spread into your shoulder, arm, neck, jaw or back Shortness of breath or increased pain with breathing Cough with dark colored sputum (phlegm) or blood Weakness, dizziness, or fainting Fever of 100.4F (38C) or higher, or as directed by your healthcare provider You have been given the following additional information: Abdominal Pain, Unknown Cause, (Female) Chest Wall Strain No driving or operating machinery while taking medication. Sedative medication was given during your visit. (Electronically signed by Karsten Mathis MD 05/19/2016 18:52)
--- NOTE | 2016-05-19 18:53 | ED MED RECONCILIATION SUMMARY ---
Patient: NADINE PERRY Medication Reconciliation Report [facility] VisitID: [id number] [address] [place] [address] 36y, F Registration Date/Time: 05/15/2016 Weight: 68.0 kg Height/Length: 64 in. BMI: 25.8 ALLERGIES: Amytriptilline, ASA, Benzos, Latex, Reglan, Sulfa Drugs, Toradol, Valium, Vicodin, Xanax The patient's Home Medications are listed below: NONE. The source(s) of the original Home Medication information: Not obtained. The following Medications were given to the patient in the Emergency Department: Dilaudid [IVP] IVP 0.5 mg, administered: 05/15/2016 10:35:00 PM Zofran [IVP] IVP 4 mg, administered: 05/15/2016 10:36:00 PM Dilaudid [IVP] IVP 0.5 mg, administered: 05/15/2016 11:28:00 PM IV NS IV Fluids bolus 500 mL over 30 minute(s), administered: 05/15/2016 11:27:00 PM IV NS IV Fluids bolus 0, then 1000 mL/hr, administered: 05/16/2016 1:30:00 AM Dilaudid [IVP] IVP 0.5 mg, administered: 05/16/2016 1:31:00 AM The following Medications were prescribed to the patient: None.
--- NOTE | 2016-05-19 18:53 | ED MAR SUMMARY ---
..... Medication Administration Record Located Within [facility] [address] [place] [address] Patient: NADINE PERRY Visit ID: [id number] 36y, F Weight: 68.0 kg Height/Length: 64 in BMI: 25.8 ALLERGIES: Amytriptilline, ASA, Benzos, Latex, Reglan, Sulfa Drugs, Toradol, Valium, Vicodin, Xanax Given 22:35 05/15/2016 Amanda Brar R.N. Medication Administered: DILAUDID [IVP] (HYDROMORPHONE HCL PF), Dose: 0.5 mg IVP over 1 minute(s), Site: #1 right AC. Medication Ordered: Dilaudid IV 0.5 mg (HIGH ALERT MEDICATION, NOW). Given 22:36 05/15/2016 Amanda Brar R.N. Medication Administered: ZOFRAN [IVP] (ONDANSETRON HCL), Dose: 4 mg IVP over 30 second(s), Site: #1 right AC. Medication Ordered: Zofran IV 4 mg (NOW). Start 23:27 05/15/2016 Amanda Brar R.N., Stop 23:30 05/15/2016 Amanda Brar R.N. Medication Administered: IV NS (SALINE), Dose: IV Fluids, Bolus: 500 mL over 30 minute(s), Dispensed: 1000 mL bag, Site: #1 right AC. Medication Ordered: IV NS : initial bolus 500 mL (1000 mL/hr), then 125 mL/hr for 4h (NOW); Urgent. Given 23:28 05/15/2016 Amanda Brar R.NNorah Medication Administered: DILAUDID [IVP] (HYDROMORPHONE HCL PF), Dose: 0.5 mg IVP over 30 second(s), Site: #1 right AC. Medication Ordered: Dilaudid IV 0.5 mg (HIGH ALERT MEDICATION, NOW). Start 01:30 05/16/2016 Amanda Brar R.N., Stop 02:05/16/2016 Amanda Brar R.N. Medication Administered: IV NS (SALINE), Dose: IV Fluids, Rate: 1000 mL/hr, Dispensed: 1000 mL bag, Site: #1 right AC. Medication Ordered: IV NS : initial bolus 500 mL (1000 mL/hr), then 125 mL/hr for 4h (NOW); Urgent. Given 01:31 05/16/2016 Amanda Brar R.NNorah Medication Administered: DILAUDID [IVP] (HYDROMORPHONE HCL PF), Dose: 0.5 mg IVP over 30 second(s), Site: #1 right AC. Medication Ordered: Dilaudid IV 0.5 mg (HIGH ALERT MEDICATION, NOW).
== END 2016-05-16 02:01 | disposition home or self-care (01) ==
LOC: ED SRH 20:14
DX: R10.11 Right upper quadrant pain (principal); R11.0 Nausea; Z88.6 Allergy status to analgesic agent; Z88.5 Allergy status to narcotic agent; Z88.2 Allergy status to sulfonamides; F17.200 Nicotine dependence, unspecified, uncomplicated
CPT/HCPCS: 90004; 90100; 91556; 92235; 92530; 95059

== ENCOUNTER 2016-10-05 21:14 | Emergency (ER) | payer BC ==
--- NOTE | 2016-10-05 22:11 | ED CLINICAL REPORT ---
Clinical Report - Physicians/Mid Levels [facility] [address] [place] [address] 10/05/2016 21:15 Patient: NADINE PERRY Arrived- By private vehicle. Historian- patient. HISTORY OF PRESENT ILLNESS Chief Complaint: BACK PAIN. It is described as being in the area of the mid lumbar spine, lower lumbar spine, right lower lumbar spine and right SI joint. The quality is noted to be "pain" and similar to prior episodes. Onset- 3 days. No bladder dysfunction. Additional history - She reports right-sided low back pain over the last 3 days. Reports pain radiates to the right a leg on the lateral and posterior aspect. Pain worsens with movement, activity, standing. Patient denies any dysuria, urgency or frequency. Reports that she has bowel movement, and has to strain her pain worsens. She denies any fall or trauma. Patient reports history of similar with sciatica back pain previously, almost 6 months previously, did not fall but she did not have any problems with it, and at that time was doing exercises to improve her back pain. Patient denies an injury. REVIEW OF SYSTEMS No fever, difficulty with urination, urinary frequency, sore throat or chest pain. All systems otherwise negative, except as recorded above. PAST HISTORY Problems: Intervertebral Disc Disease. Lumbar Radiculopathy. Viral Disease. Crush Injury, Lower Extremity. Tetanus Status. Migraine Headache. Vaginal Discharge. Pelvic Pain. Lifestyle / Substance Problems. Contusion. Lower Extremity Pain. Back Pain. Lumbar Strain. Anxiety Reaction. Depression. Fibromyalgia. Headache. Immunizations. LNMP - Last Normal Menstrual Period. Additional Surgeries: Adenoidectomy. . Eye surgery . Fusion. Hemrrhoidectomy. Hysterectomy. Oophorectomy. Salpingectomy. Medications: None. Allergies: Amytriptilline. ASA. Benzos. Latex. Reglan. Sulfa Drugs. Toradol. Valium. Vicodin. Xanax. SOCIAL HISTORY Smoker- current status unknown. No alcohol use or drug use. PHYSICAL EXAM Appearance: Alert. CVS: Heart sounds normal. Pulses normal. Respiratory: No respiratory distress. Breath sounds normal. Abdomen: No visible injury. Soft. No mass. No abdominal tenderness. The bowel sounds are not abnormal. Back: Moderate soft tissue tenderness in the right mid and lower lumbar area. Neuro: Oriented X 3. Straight leg raising: positive on the right at 15 degrees. Reflex exam: right patellar 2+ and left patellar 2+. PROGRESS AND PROCEDURES Course of Care: There are no risks for spinal epidural abscess or hematoma as patient is without any risk factors such as IVDA or evidence of active infection, no midline tenderness to percussion. Hence I do not feel emergent imaging with an MRI is indicated. However I did discuss with the patient that if these symptoms develop, or if the pain does not resolve an MRI may need to be done outpatient, or in the ED if symptoms worsen acutely or new onset of the above mentioned symptoms develop. Patient is stable. Differential Diagnosis: I considered Musculo-skeletal strain, disk protrusion, facet syndrome, renal injury, osteoarthritis, lumbar spondylosis, ankylosing spondylitis, pancreatitis, endometriosis, epidural abscess, pyelonephritis, neurofibroma, metastatic cancer, ovarian cancer, abdominal aortic aneurysm and ureterolithiasis as a possible cause of back pain in this patient. This is a partial list of diagnoses considered. CLINICAL IMPRESSION Acute right sided sciatica with low back pain. INSTRUCTIONS Apply ice. Limit lifting. No strenuous activity. (Address: [address] [place] [id number] ). Prescription Medications: Hydrocodone/APAP 7.5mg / 325mg: take 1 orally every 6 hours as needed for pain. Dispense twenty (20). No refill. Flexeril 10 mg: take 1 orally every 8 hours for 5 days as needed for muscle spasm. Dispense ten (10). No refills. Ibuprofen 800 mg tablets: take 1 tablet orally every 8 hours as needed for pain. Dispense thirty (30). No refills. (Electronically signed by Naima Kingston P.A.-C 10/05/2016 22:29)
--- NOTE | 2016-10-05 22:11 | ED ORDER SUMMARY ---
..... Patient: NADINE PERRY OrderSheet [facility] VisitID: [id number] [place] [address] 36y, F Registration Date/Time: 10/05/2016 ORDER SHEET Weight: 69.8 kg (stated) Allergies: Amytriptilline, ASA, Benzos, Latex, Reglan, Sulfa Drugs, Toradol, Valium, Vicodin, Xanax GENERAL ORDERS: MEDICATION ORDERS: Percocet PO 5/325 mg (HIGH ALERT MEDICATION, NOW) (21:56 10/05/2016 EKorolepatricia P.A.-C) (Ack 22:31 JSanders R.N.) (22:51 JSanders R.N.) Flexeril PO 10 mg (NOW) (21:57 10/05/2016 EKemeteriolepatricia P.A.-C) (Ack 22:31 JSanders R.N.) (22:51 JSanders R.N.) IV FLUIDS: ORDER SHEET NOTES: [Electronically signed by Naima KingstonANorah-C (22:29 10/05/2016)] [Electronically signed by Carlene Wise R.N. (22:54 10/05/2016)] [Electronically locked/signed by Carlene Wise R.N. (22:54 10/05/2016)]
--- NOTE | 2016-10-05 22:11 | ED CLINICAL REPORT ---
Clinical Report - Physicians/Mid Levels [facility] [address] [place] [address] 10/05/2016 21:15 Patient: NADINE PERRY Arrived- By private vehicle. Historian- patient. HISTORY OF PRESENT ILLNESS Chief Complaint: BACK PAIN. It is described as being in the area of the mid lumbar spine, lower lumbar spine, right lower lumbar spine and right SI joint. The quality is noted to be "pain" and similar to prior episodes. Onset- 3 days. No bladder dysfunction. Additional history - She reports right-sided low back pain over the last 3 days. Reports pain radiates to the right a leg on the lateral and posterior aspect. Pain worsens with movement, activity, standing. Patient denies any dysuria, urgency or frequency. Reports that she has bowel movement, and has to strain her pain worsens. She denies any fall or trauma. Patient reports history of similar with sciatica back pain previously, almost 6 months previously, did not fall but she did not have any problems with it, and at that time was doing exercises to improve her back pain. Patient denies an injury. REVIEW OF SYSTEMS No fever, difficulty with urination, urinary frequency, sore throat or chest pain. All systems otherwise negative, except as recorded above. PAST HISTORY Problems: Intervertebral Disc Disease. Lumbar Radiculopathy. Viral Disease. Crush Injury, Lower Extremity. Tetanus Status. Migraine Headache. Vaginal Discharge. Pelvic Pain. Lifestyle / Substance Problems. Contusion. Lower Extremity Pain. Back Pain. Lumbar Strain. Anxiety Reaction. Depression. Fibromyalgia. Headache. Immunizations. LNMP - Last Normal Menstrual Period. Additional Surgeries: Adenoidectomy. . Eye surgery . Fusion. Hemrrhoidectomy. Hysterectomy. Oophorectomy. Salpingectomy. Medications: None. Allergies: Amytriptilline. ASA. Benzos. Latex. Reglan. Sulfa Drugs. Toradol. Valium. Vicodin. Xanax. SOCIAL HISTORY Smoker- current status unknown. No alcohol use or drug use. PHYSICAL EXAM Appearance: Alert. CVS: Heart sounds normal. Pulses normal. Respiratory: No respiratory distress. Breath sounds normal. Abdomen: No visible injury. Soft. No mass. No abdominal tenderness. The bowel sounds are not abnormal. Back: Moderate soft tissue tenderness in the right mid and lower lumbar area. Neuro: Oriented X 3. Straight leg raising: positive on the right at 15 degrees. Reflex exam: right patellar 2+ and left patellar 2+. PROGRESS AND PROCEDURES Course of Care: There are no risks for spinal epidural abscess or hematoma as patient is without any risk factors such as IVDA or evidence of active infection, no midline tenderness to percussion. Hence I do not feel emergent imaging with an MRI is indicated. However I did discuss with the patient that if these symptoms develop, or if the pain does not resolve an MRI may need to be done outpatient, or in the ED if symptoms worsen acutely or new onset of the above mentioned symptoms develop. Patient is stable. Differential Diagnosis: I considered Musculo-skeletal strain, disk protrusion, facet syndrome, renal injury, osteoarthritis, lumbar spondylosis, ankylosing spondylitis, pancreatitis, endometriosis, epidural abscess, pyelonephritis, neurofibroma, metastatic cancer, ovarian cancer, abdominal aortic aneurysm and ureterolithiasis as a possible cause of back pain in this patient. This is a partial list of diagnoses considered. CLINICAL IMPRESSION Acute right sided sciatica with low back pain. INSTRUCTIONS Apply ice. Limit lifting. No strenuous activity. (Address: [address] [place] [id number] ). Prescription Medications: Hydrocodone/APAP 7.5mg / 325mg: take 1 orally every 6 hours as needed for pain. Dispense twenty (20). No refill. Flexeril 10 mg: take 1 orally every 8 hours for 5 days as needed for muscle spasm. Dispense ten (10). No refills. Ibuprofen 800 mg tablets: take 1 tablet orally every 8 hours as needed for pain. Dispense thirty (30). No refills. (Electronically signed by Naima Kingston P.A.-C 10/05/2016 22:29)
--- NOTE | 2016-10-05 22:11 | ED ORDER SUMMARY ---
..... Patient: NADINE PERRY OrderSheet [facility] VisitID: [id number] [place] [address] 36y, F Registration Date/Time: 10/05/2016 ORDER SHEET Weight: 69.8 kg (stated) Allergies: Amytriptilline, ASA, Benzos, Latex, Reglan, Sulfa Drugs, Toradol, Valium, Vicodin, Xanax GENERAL ORDERS: MEDICATION ORDERS: Percocet PO 5/325 mg (HIGH ALERT MEDICATION, NOW) (21:56 10/05/2016 EKorolepatricia P.A.-C) (Ack 22:31 JSanders R.N.) (22:51 JSanders R.N.) Flexeril PO 10 mg (NOW) (21:57 10/05/2016 EKemeteriolepatricia P.A.-C) (Ack 22:31 JSanders R.N.) (22:51 JSanders R.N.) IV FLUIDS: ORDER SHEET NOTES: [Electronically signed by Naima KingstonANorah-C (22:29 10/05/2016)] [Electronically signed by Carlene Wise R.N. (22:54 10/05/2016)] [Electronically locked/signed by Carlene Wise R.N. (22:54 10/05/2016)]
--- NOTE | 2016-10-05 22:11 | ED NURSING NOTES ---
Clinical Report - Nurses [facility] [address] [place] [address] 10/05/2016 21:15 Patient: NADINE PERRY TRIAGE Triage time 21:37 Oct 05 2016. Acuity: LEVEL 3. Chief Complaint: BACK PAIN and (Back pain, possibly sciatica, radiates down right hip and right leg). 21:43 10/05/16. SEPSIS SCREEN: Sepsis Screen. Negative (no infection suspected/documented). ANIRUDH COMA SCORE: [place] Coma Scale: 15- eyes open spontaneously (4); best verbal response- oriented x 4 (5); best motor response- obeys commands (6). --21:43 Carlene Wise R.N. 21:37 10/05/16. BP: 115/85 (regular adult cuff) taken on the left arm, while sitting. HR: 80. RR: 16. O2 saturation: 100% on room air. Temp: 98.5 F (oral). Pain level now: 11/13. --21:43 Carlene Wise R.N. Weight: 69.8 kg stated. Height/Length: 64 inches Per Patient. BMI: 26.4. --21:40 Carlene iWse R.N. Medications None. --21:39 Carlene Wise R.N. Allergies Amytriptilline. ASA. Benzos. Latex. Reglan. Sulfa Drugs. Toradol. Valium. --21:39 Carlene Wise R.N. Vicodin. Xanax. --21:39 Carlene Wise R.N. History Historian: patient. Primary physician (LEVI HOWELL). Onset. (3 days). ( Patient reports having back pain in the past, this has since went away so she did not see a doctor, she has now been having same back pain x 3 days, radiates down right hip, and right leg). She has had numbness, weakness and tingling. ( with BM). Treatment TRACKMAN: (Ibuprofen). SOCIAL HX: Current every day light tobacco smoker- less than 1/2 a pack per day. No alcohol use or drug use. No infectious disease exposure. ABUSE ASSESSMENT: No report of abuse. --21:43 Carlene Wise R.N. PROBLEMS: Intervertebral Disc Disease. Lumbar Radiculopathy. Viral Disease. Crush Injury, Lower Extremity. Migraine Headache. Pelvic Pain. Lifestyle / Substance Problems. Lower Extremity Pain. Back Pain. Lumbar Strain. Anxiety Reaction. Depression. Fibromyalgia. Headache. --21:40 Carlene Wise R.N. ADDITIONAL SURGERIES: Adenoidectomy. . Eye surgery . Fusion. Hemrrhoidectomy. Hysterectomy. Oophorectomy. Salpingectomy. --21:40 Carlene Wise R.N. Interventions ID band on patient. To treatment room. --21:43 Carlene Wise R.N. PHYSICAL ASSESSMENT 21:44 10/05/16. To room via stretcher. Patient gowned. GENERAL / NEURO / PSYCH: Alert. Oriented X 4. Appears in no acute distress. RESPIRATORY: Respirations not labored. Chest nontender. Breath sounds within normal limits. CVS: Normal heart rate and rhythm. Capillary refill less than 2 seconds. GI / : Abdomen soft and nontender. Bowel sounds within normal limits. EXTREMITIES: Limited ROM present (Having trouble with walking). BACK: Limited ROM of the back. Soft tissue tenderness in the right lower lumbar paraspinous region. --21:44 Carlene Wise R.N. NURSING PROGRESS NOTES 21:44 10/05/16. The plan of care for this patient has been created. Patient gowned. Head of bed elevated. Reassurance given. Two patient identifiers checked. Call light placed in reach. Side rails up x 1. Bed placed in lowest position. Brakes of bed on. Patient ready for evaluation- chart flagged and ED physician notified. --21:44 Carlene Wise R.N. 22:35 10/05/2016 Percocet (Oxycodone-Acetaminophen) PO 5/325 mg Tablets 1 tab given. Allergies verified, confirmed 5 rights and sedative warning given to the patient. --22:51 Carlene Wise R.N. 22:35 10/05/2016 Flexeril (Cyclobenzaprine HCl) PO Tablets 10 mg given. Allergies verified and confirmed 5 rights. --22:51 Carlene Wise R.N. DISPOSITION / DISCHARGE late entry - 22:41 10/05/16. Departure time: 22:41 Oct 05 2016. Condition at departure: unchanged. No learning barriers present. Discharge instructions provided and reviewed with the patient. Reviewed medication(s) side effects, precautions, dosing and course information. Prescription(s) given to the patient. Activity restrictions (no driving) reviewed (no lifting). Patient verbalized understanding. Written instructions provided in [place]. The patient was discharged by the physician assistant portfolio manager. She was discharged home and accompanied by family. She left the Emergency Department ambulatory and via private vehicle. Family member driving. --22:53 Carlene Wise R.N. 22:51 10/05/16. BP: 112/77 (regular adult cuff) taken on the left arm, while sitting. HR: 73. RR: 16. O2 saturation: 98% on room air. Temp: 98.6 F (oral). Pain level now: 11/13. --22:53 Carlene Wise R.N. Locked/Released at 10/05/2016 22:54 by Carlene Wise R.N.
--- NOTE | 2016-10-05 22:11 | ED NURSING NOTES ---
Clinical Report - Nurses [facility] [address] [place] [address] 10/05/2016 21:15 Patient: NADINE PERRY TRIAGE Triage time 21:37 Oct 05 2016. Acuity: LEVEL 3. Chief Complaint: BACK PAIN and (Back pain, possibly sciatica, radiates down right hip and right leg). 21:43 10/05/16. SEPSIS SCREEN: Sepsis Screen. Negative (no infection suspected/documented). ANIRUDH COMA SCORE: [place] Coma Scale: 15- eyes open spontaneously (4); best verbal response- oriented x 4 (5); best motor response- obeys commands (6). --21:43 Carlene Wise R.N. 21:37 10/05/16. BP: 115/85 (regular adult cuff) taken on the left arm, while sitting. HR: 80. RR: 16. O2 saturation: 100% on room air. Temp: 98.5 F (oral). Pain level now: 11/13. --21:43 Carlene Wise R.N. Weight: 69.8 kg stated. Height/Length: 64 inches Per Patient. BMI: 26.4. --21:40 Carlene Wise R.N. Medications None. --21:39 Carlene Wise R.N. Allergies Amytriptilline. ASA. Benzos. Latex. Reglan. Sulfa Drugs. Toradol. Valium. --21:39 Carlene Wise R.N. Vicodin. Xanax. --21:39 Carlene Wise R.N. History Historian: patient. Primary physician (LEVI HOWELL). Onset. (3 days). ( Patient reports having back pain in the past, this has since went away so she did not see a doctor, she has now been having same back pain x 3 days, radiates down right hip, and right leg). She has had numbness, weakness and tingling. ( with BM). Treatment FRUIT PRESERVER: (Ibuprofen). SOCIAL HX: Current every day light tobacco smoker- less than 1/2 a pack per day. No alcohol use or drug use. No infectious disease exposure. ABUSE ASSESSMENT: No report of abuse. --21:43 Carlene Wise R.N. PROBLEMS: Intervertebral Disc Disease. Lumbar Radiculopathy. Viral Disease. Crush Injury, Lower Extremity. Migraine Headache. Pelvic Pain. Lifestyle / Substance Problems. Lower Extremity Pain. Back Pain. Lumbar Strain. Anxiety Reaction. Depression. Fibromyalgia. Headache. --21:40 Carlene Wise R.N. ADDITIONAL SURGERIES: Adenoidectomy. . Eye surgery . Fusion. Hemrrhoidectomy. Hysterectomy. Oophorectomy. Salpingectomy. --21:40 Carlene Wise R.N. Interventions ID band on patient. To treatment room. --21:43 Carlene Wise R.N. PHYSICAL ASSESSMENT 21:44 10/05/16. To room via stretcher. Patient gowned. GENERAL / NEURO / PSYCH: Alert. Oriented X 4. Appears in no acute distress. RESPIRATORY: Respirations not labored. Chest nontender. Breath sounds within normal limits. CVS: Normal heart rate and rhythm. Capillary refill less than 2 seconds. GI / : Abdomen soft and nontender. Bowel sounds within normal limits. EXTREMITIES: Limited ROM present (Having trouble with walking). BACK: Limited ROM of the back. Soft tissue tenderness in the right lower lumbar paraspinous region. --21:44 Carlene Wise R.N. NURSING PROGRESS NOTES 21:44 10/05/16. The plan of care for this patient has been created. Patient gowned. Head of bed elevated. Reassurance given. Two patient identifiers checked. Call light placed in reach. Side rails up x 1. Bed placed in lowest position. Brakes of bed on. Patient ready for evaluation- chart flagged and ED physician notified. --21:44 Carlene Wise R.N. 22:35 10/05/2016 Percocet (Oxycodone-Acetaminophen) PO 5/325 mg Tablets 1 tab given. Allergies verified, confirmed 5 rights and sedative warning given to the patient. --22:51 Carlene Wise R.N. 22:35 10/05/2016 Flexeril (Cyclobenzaprine HCl) PO Tablets 10 mg given. Allergies verified and confirmed 5 rights. --22:51 Carlene Wise R.N. DISPOSITION / DISCHARGE late entry - 22:41 10/05/16. Departure time: 22:41 Oct 05 2016. Condition at departure: unchanged. No learning barriers present. Discharge instructions provided and reviewed with the patient. Reviewed medication(s) side effects, precautions, dosing and course information. Prescription(s) given to the patient. Activity restrictions (no driving) reviewed (no lifting). Patient verbalized understanding. Written instructions provided in Syriac. The patient was discharged by the physician graduate research assistant. She was discharged home and accompanied by family. She left the Emergency Department ambulatory and via private vehicle. Family member driving. --22:53 Carlene Wise R.N. 22:51 10/05/16. BP: 112/77 (regular adult cuff) taken on the left arm, while sitting. HR: 73. RR: 16. O2 saturation: 98% on room air. Temp: 98.6 F (oral). Pain level now: 11/13. --22:53 Carlene Wise R.N. Locked/Released at 10/05/2016 22:54 by Carlene Wise R.N.
--- NOTE | 2016-10-05 22:54 | ED MAR SUMMARY ---
..... Medication Administration Record [facility] [address] [place] [address] Patient: NADINE PERRY Visit ID: [id number] 36y, F Weight: 69.8 kg Height/Length: 64 in BMI: 26.4 ALLERGIES: Amytriptilline, ASA, Benzos, Latex, Reglan, Sulfa Drugs, Toradol, Valium, Vicodin, Xanax Given :10/05/2016 Carlene Wise RNorahNNorah Medication Administered: PERCOCET [PO] (OXYCODONE-ACETAMINOPHEN), Dose: 1 tab 5/325 mg Tablets PO. Medication Ordered: Percocet PO 5/325 mg (HIGH ALERT MEDICATION, NOW). Given :10/05/2016 Carlene Wise RNorahNNorah Medication Administered: FLEXERIL [PO] (CYCLOBENZAPRINE HCL), Dose: 10 mg Tablets PO. Medication Ordered: Flexeril PO 10 mg (NOW).
--- NOTE | 2016-10-05 22:54 | ED MED RECONCILIATION SUMMARY ---
Patient: NADINE PERRY Medication Reconciliation Report [facility] VisitID: [id number] [address] [place] [address] 36y, F Registration Date/Time: 10/05/2016 Weight: 69.8 kg Height/Length: 64 in. BMI: 26.4 ALLERGIES: Amytriptilline, ASA, Benzos, Latex, Reglan, Sulfa Drugs, Toradol, Valium, Vicodin, Xanax The patient's Home Medications are listed below: NONE. The source(s) of the original Home Medication information: Not obtained. The following Medications were given to the patient in the Emergency Department: Percocet [PO] PO 1 tab, administered: 10/05/2016 10:35:00 PM Flexeril [PO] PO 10 mg, administered: 10/05/2016 10:35:00 PM The following Medications were prescribed to the patient: Hydrocodone/APAP 7.5mg / 325mg: take 1 orally every 6 hours as needed for pain. Dispense twenty (20). No refill. -- Naima Kingston, P.A.-C Flexeril 10 mg: take 1 orally every 8 hours for 5 days as needed for muscle spasm. Dispense ten (10). No refills. -- Naima Kingston, P.A.-C Ibuprofen 800 mg tablets: take 1 tablet orally every 8 hours as needed for pain. Dispense thirty (30). No refills. -- Naima Kingston, P.A.-C
--- NOTE | 2016-10-05 22:54 | ED DISCHARGE INSTRUCTIONS ---
Patient: NADINE PERRY General Instructions [facility] VisitID: [id number] [place] [address] 36y, F Registration Date/Time: 10/05/2016 Acute right sided sciatica with low back pain. INSTRUCTIONS Apply ice. Limit lifting. No strenuous activity. (Address: [address] [place] [address] ). Prescription Medications: Hydrocodone/APAP 7.5mg / 325mg: take 1 orally every 6 hours as needed for pain. Dispense twenty (20). No refill. Flexeril 10 mg: take 1 orally every 8 hours for 5 days as needed for muscle spasm. Dispense ten (10). No refills. Ibuprofen 800 mg tablets: take 1 tablet orally every 8 hours as needed for pain. Dispense thirty (30). No refills. ADDITIONAL INFORMATION Sciatica Sciatica ("Lumbar Radiculopathy") causes a pain that spreads from the lower back down into the buttock, hip and leg. Sometimes leg pain can occur without any back pain. Sciatica is due to irritation or pressure on a spinal nerve as it comes out of the spinal canal. This is most often due to a bulge or rupture of a nearby spinal disk (the cartilage cushion between each spinal bone), which presses on a nearby nerve. Other causes include spinal stenosis (narrowing of the spinal canal) and spasm of the pyriform muscle (a muscle in the buttocks that the sciatic nerve passes through). Sciatica may begin after a sudden twisting/bending force (such as in a car accident), or sometimes after a simple awkward movement. In either case, muscle spasm is commonly present and contributes to the pain. The diagnosis of sciatica is made from the symptoms and physical exam. Unless you had a physical injury (such as a car accident or fall), X-rays are usually not ordered for the initial evaluation of sciatica because the nerves and disks cannot be seen on an x-ray. If signs of a compressed nerve are present (for example, loss of tendon reflex or strength in the leg), an MRI (magnetic resonance imaging) scan will need to be scheduled as an outpatient. Most sciatica (80-90%) gets better with medicine, exercise, physical therapy. If symptoms continue after at least three months of medical treatment, surgery may be considered. Home Care: You may need to stay in bed the first few days. But, as soon as possible, begin sitting or walking to avoid problems with prolonged bed rest. When in bed, try to find a position of comfort. A firm mattress is best. Try lying flat on your back with pillows under your knees. You can also try lying on your side with your knees bent up towards your chest and a pillow between your knees. Avoid prolonged sitting. This puts more stress on the lower back than standing or walking. Some persons find relief with heat (hot shower, hot bath or heating pad) and massage, while others prefer cold packs (crushed or cubed ice in a plastic bag, wrapped in a towel). Try both and use the method that feels best for 20 minutes several times a day. You may use acetaminophen (Tylenol) or ibuprofen (Motrin, Advil) to control pain, unless another pain medicine was prescribed. [ NOTE: If you have chronic liver or kidney disease or ever had a stomach ulcer or GI bleeding, talk with your doctor before using these medicines.] Be aware of safe lifting methods and do not lift anything over 15 pounds until all the pain is gone. Follow Up with your doctor or this facility if your symptoms do not start to improve after one week. Physical therapy or further testing may be needed. [NOTE: If X-rays were taken, they will be reviewed by a radiologist. You will be notified of any new findings that may affect your care.] Get Prompt Medical Attention if any of the following occur: Pain becomes worse, not controlled by the prescribed medicine Weakness or numbness in one or both legs Numbness in the groin, genital area Loss of bowel or bladder control Hydrocodone Bitartrate, Acetaminophen Oral tablet What is this medicine? ACETAMINOPHEN; HYDROCODONE (a set a KHADRA bishop fen; martinez droe KOE done) is a pain reliever. It is used to treat mild to moderate pain. How should I use this medicine? Take this medicine by mouth. Swallow it with a full glass of water. Follow the directions on the prescription label. If the medicine upsets your stomach, take the medicine with food or milk. Do not take more than you are told to take. Talk to your electronics engineering technician regarding the use of this medicine in children. This medicine is not approved for use in children. What side effects may I notice from receiving this medicine? Side effects that you should report to your doctor or health rental boats caretaker as soon as possible: allergic reactions like skin rash, itching or hives, swelling of the face, lips, or tongue breathing problems confusion feeling faint or lightheaded, falls stomach pain yellowing of the eyes or skin Side effects that usually do not require medical attention (report to your doctor or health rental boats caretaker if they continue or are bothersome): nausea, vomiting stomach upset What may interact with this medicine? alcohol antihistamines isoniazid medicines for depression, anxiety, or psychotic disturbances medicines for sleep muscle relaxants naltrexone narcotic medicines (opiates) for pain phenobarbital ritonavir tramadol What if I miss a dose? If you miss a dose, take it as soon as you can. If it is almost time for your next dose, take only that dose. Do not take double or extra doses. Where should I keep my medicine? Keep out of the reach of children. This medicine can be abused. Keep your medicine in a safe place to protect it from theft. Do not share this medicine with anyone. Selling or giving away this medicine is dangerous and against the law. Store at room temperature between 15 and 30 degrees C (59 and 86 degrees F). Protect from light. Keep container tightly closed. Throw away any unused medicine after the expiration date. Discard unused medicine and used packaging carefully. Pets and children can be harmed if they find used or lost packages. What should I tell my health care provider before I take this medicine? They need to know if you have any of these conditions: brain tumor Crohn's disease, inflammatory bowel disease, or ulcerative colitis drink more than 3 alcohol-containing drinks per day drug abuse or addiction head injury heart or circulation problems kidney disease or problems going to the bathroom liver disease lung disease, asthma, or breathing problems an unusual or allergic reaction to acetaminophen, hydrocodone, other opioid analgesics, other medicines, foods, dyes, or preservatives or trying to get breast-feeding What should I watch for while using this medicine? Tell your doctor or health rental boats caretaker if your pain does not go away, if it gets worse, or if you have new or a different type of pain. You may develop tolerance to the medicine. Tolerance means that you will need a higher dose of the medicine for pain relief. Tolerance is normal and is expected if you take the medicine for a long time. Do not suddenly stop taking your medicine because you may develop a severe reaction. Your body becomes used to the medicine. This does NOT mean you are addicted. Addiction is a behavior related to getting and using a drug for a non-medical reason. If you have pain, you have a medical reason to take pain medicine. Your doctor will tell you how much medicine to take. If your doctor wants you to stop the medicine, the dose will be slowly lowered over time to avoid any side effects. You may get drowsy or dizzy when you first start taking the medicine or change doses. Do not drive, use machinery, or do anything that may be dangerous until you know how the medicine affects you. Stand or sit up slowly. There are different types of narcotic medicines (opiates) for pain. If you take more than one type at the same time, you may have more side effects. Give your health care provider a list of all medicines you use. Your doctor will tell you how much medicine to take. Do not take more medicine than directed. Call emergency for help if you have problems breathing. The medicine will cause constipation. Try to have a bowel movement at least every 2 to 3 days. If you do not have a bowel movement for 3 days, call your doctor or health rental boats caretaker. Too much acetaminophen can be very dangerous. Do not take Tylenol (acetaminophen) or medicines that contain acetaminophen with this medicine. Many non-prescription medicines contain acetaminophen. Always read the labels carefully. Cyclobenzaprine Hydrochloride Oral tablet What is this medicine? CYCLOBENZAPRINE (alyssa pichardo) is a muscle relaxer. It is used to treat muscle pain, spasms, and stiffness. How should I use this medicine? Take this medicine by mouth with a glass of water. Follow the directions on the prescription label. If this medicine upsets your stomach, take it with food or milk. Take your medicine at regular intervals. Do not take it more often than directed. Talk to your electronics engineering technician regarding the use of this medicine in children. Special care may be needed. What side effects may I notice from receiving this medicine? Side effects that you should report to your doctor or health rental boats caretaker as soon as possible: allergic reactions like skin rash, itching or hives, swelling of the face, lips, or tongue chest pain fast heartbeat hallucinations seizures vomiting Side effects that usually do not require medical attention (report to your doctor or health rental boats caretaker if they continue or are bothersome): headache What may interact with this medicine? Do not take this medicine with any of the following medications: cisapride droperidol flecainide grepafloxacin halofantrine levomethadyl MAOIs like Carbex, Eldepryl, Marplan, Nardil, and Parnate nilotinib pimozide probucol sertindole This medicine may also interact with the following medications: abarelix alcohol contrast dyes dolasetron guanethidine medicines for cancer medicines for depression, anxiety, or psychotic disturbances medicines to treat an irregular heartbeat medicines used for sleep or numbness during surgery or procedure methadone octreotide ondansetron palonosetron phenothiazines like chlorpromazine, mesoridazine, prochlorperazine, thioridazine some medicines for infection like alfuzosin, chloroquine, clarithromycin, levofloxacin, mefloquine, pentamidine, troleandomycin tramadol vardenafil What if I miss a dose? If you miss a dose, take it as soon as you can. If it is almost time for your next dose, take only that dose. Do not take double or extra doses. Where should I keep my medicine? Keep out of the reach of children. Store at room temperature between 15 and 30 degrees C (59 and 86 degrees F). Keep container tightly closed. Throw away any unused medicine after the expiration date. What should I tell my health care provider before I take this medicine? They need to know if you have any of these conditions: heart disease, irregular heartbeat, or previous heart attack liver disease thyroid problem an unusual or allergic reaction to cyclobenzaprine, tricyclic antidepressants, lactose, other medicines, foods, dyes, or preservatives or trying to get breast-feeding What should I watch for while using this medicine? Check with your doctor or health rental boats caretaker if your condition does not improve within 1 to 3 weeks. You may get drowsy or dizzy when you first start taking the medicine or change doses. Do not drive, use machinery, or do anything that may be dangerous until you know how the medicine affects you. Stand or sit up slowly. Your mouth may get dry. Drinking water, chewing sugarless gum, or sucking on hard candy may help. You have been given the following additional information: Back Pain W/ Sciatica Hydrocodone Bitartrate, Acetaminophen Oral tablet Cyclobenzaprine Hydrochloride Oral tablet Limit lifting. No strenuous activity. (Electronically signed by Naima Kingston P.A.-C 10/05/2016 22:29)
--- NOTE | 2016-10-05 22:54 | ED DISCHARGE INSTRUCTIONS ---
Patient: NADINE PERRY General Instructions [facility] VisitID: [id number] [place] [address] 36y, F Registration Date/Time: 10/05/2016 Acute right sided sciatica with low back pain. INSTRUCTIONS Apply ice. Limit lifting. No strenuous activity. (Address: [address] [address] ). Prescription Medications: Hydrocodone/APAP 7.5mg / 325mg: take 1 orally every 6 hours as needed for pain. Dispense twenty (20). No refill. Flexeril 10 mg: take 1 orally every 8 hours for 5 days as needed for muscle spasm. Dispense ten (10). No refills. Ibuprofen 800 mg tablets: take 1 tablet orally every 8 hours as needed for pain. Dispense thirty (30). No refills. ADDITIONAL INFORMATION Sciatica Sciatica ("Lumbar Radiculopathy") causes a pain that spreads from the lower back down into the buttock, hip and leg. Sometimes leg pain can occur without any back pain. Sciatica is due to irritation or pressure on a spinal nerve as it comes out of the spinal canal. This is most often due to a bulge or rupture of a nearby spinal disk (the cartilage cushion between each spinal bone), which presses on a nearby nerve. Other causes include spinal stenosis (narrowing of the spinal canal) and spasm of the pyriform muscle (a muscle in the buttocks that the sciatic nerve passes through). Sciatica may begin after a sudden twisting/bending force (such as in a car accident), or sometimes after a simple awkward movement. In either case, muscle spasm is commonly present and contributes to the pain. The diagnosis of sciatica is made from the symptoms and physical exam. Unless you had a physical injury (such as a car accident or fall), X-rays are usually not ordered for the initial evaluation of sciatica because the nerves and disks cannot be seen on an x-ray. If signs of a compressed nerve are present (for example, loss of tendon reflex or strength in the leg), an MRI (magnetic resonance imaging) scan will need to be scheduled as an outpatient. Most sciatica (80-90%) gets better with medicine, exercise, physical therapy. If symptoms continue after at least three months of medical treatment, surgery may be considered. Home Care: You may need to stay in bed the first few days. But, as soon as possible, begin sitting or walking to avoid problems with prolonged bed rest. When in bed, try to find a position of comfort. A firm mattress is best. Try lying flat on your back with pillows under your knees. You can also try lying on your side with your knees bent up towards your chest and a pillow between your knees. Avoid prolonged sitting. This puts more stress on the lower back than standing or walking. Some persons find relief with heat (hot shower, hot bath or heating pad) and massage, while others prefer cold packs (crushed or cubed ice in a plastic bag, wrapped in a towel). Try both and use the method that feels best for 20 minutes several times a day. You may use acetaminophen (Tylenol) or ibuprofen (Motrin, Advil) to control pain, unless another pain medicine was prescribed. [ NOTE: If you have chronic liver or kidney disease or ever had a stomach ulcer or GI bleeding, talk with your doctor before using these medicines.] Be aware of safe lifting methods and do not lift anything over 15 pounds until all the pain is gone. Follow Up with your doctor or this facility if your symptoms do not start to improve after one week. Physical therapy or further testing may be needed. [NOTE: If X-rays were taken, they will be reviewed by a radiologist. You will be notified of any new findings that may affect your care.] Get Prompt Medical Attention if any of the following occur: Pain becomes worse, not controlled by the prescribed medicine Weakness or numbness in one or both legs Numbness in the groin, genital area Loss of bowel or bladder control Hydrocodone Bitartrate, Acetaminophen Oral tablet What is this medicine? ACETAMINOPHEN; HYDROCODONE (a set a KHADRA bishop fen; martinez droe KOE done) is a pain reliever. It is used to treat mild to moderate pain. How should I use this medicine? Take this medicine by mouth. Swallow it with a full glass of water. Follow the directions on the prescription label. If the medicine upsets your stomach, take the medicine with food or milk. Do not take more than you are told to take. Talk to your science editor regarding the use of this medicine in children. This medicine is not approved for use in children. What side effects may I notice from receiving this medicine? Side effects that you should report to your doctor or health healthcare account manager as soon as possible: allergic reactions like skin rash, itching or hives, swelling of the face, lips, or tongue breathing problems confusion feeling faint or lightheaded, falls stomach pain yellowing of the eyes or skin Side effects that usually do not require medical attention (report to your doctor or health healthcare account manager if they continue or are bothersome): nausea, vomiting stomach upset What may interact with this medicine? alcohol antihistamines isoniazid medicines for depression, anxiety, or psychotic disturbances medicines for sleep muscle relaxants naltrexone narcotic medicines (opiates) for pain phenobarbital ritonavir tramadol What if I miss a dose? If you miss a dose, take it as soon as you can. If it is almost time for your next dose, take only that dose. Do not take double or extra doses. Where should I keep my medicine? Keep out of the reach of children. This medicine can be abused. Keep your medicine in a safe place to protect it from theft. Do not share this medicine with anyone. Selling or giving away this medicine is dangerous and against the law. Store at room temperature between 15 and 30 degrees C (59 and 86 degrees F). Protect from light. Keep container tightly closed. Throw away any unused medicine after the expiration date. Discard unused medicine and used packaging carefully. Pets and children can be harmed if they find used or lost packages. What should I tell my health care provider before I take this medicine? They need to know if you have any of these conditions: brain tumor Crohn's disease, inflammatory bowel disease, or ulcerative colitis drink more than 3 alcohol-containing drinks per day drug abuse or addiction head injury heart or circulation problems kidney disease or problems going to the bathroom liver disease lung disease, asthma, or breathing problems an unusual or allergic reaction to acetaminophen, hydrocodone, other opioid analgesics, other medicines, foods, dyes, or preservatives or trying to get breast-feeding What should I watch for while using this medicine? Tell your doctor or health healthcare account manager if your pain does not go away, if it gets worse, or if you have new or a different type of pain. You may develop tolerance to the medicine. Tolerance means that you will need a higher dose of the medicine for pain relief. Tolerance is normal and is expected if you take the medicine for a long time. Do not suddenly stop taking your medicine because you may develop a severe reaction. Your body becomes used to the medicine. This does NOT mean you are addicted. Addiction is a behavior related to getting and using a drug for a non-medical reason. If you have pain, you have a medical reason to take pain medicine. Your doctor will tell you how much medicine to take. If your doctor wants you to stop the medicine, the dose will be slowly lowered over time to avoid any side effects. You may get drowsy or dizzy when you first start taking the medicine or change doses. Do not drive, use machinery, or do anything that may be dangerous until you know how the medicine affects you. Stand or sit up slowly. There are different types of narcotic medicines (opiates) for pain. If you take more than one type at the same time, you may have more side effects. Give your health care provider a list of all medicines you use. Your doctor will tell you how much medicine to take. Do not take more medicine than directed. Call emergency for help if you have problems breathing. The medicine will cause constipation. Try to have a bowel movement at least every 2 to 3 days. If you do not have a bowel movement for 3 days, call your doctor or health healthcare account manager. Too much acetaminophen can be very dangerous. Do not take Tylenol (acetaminophen) or medicines that contain acetaminophen with this medicine. Many non-prescription medicines contain acetaminophen. Always read the labels carefully. Cyclobenzaprine Hydrochloride Oral tablet What is this medicine? CYCLOBENZAPRINE (alyssa pichardo) is a muscle relaxer. It is used to treat muscle pain, spasms, and stiffness. How should I use this medicine? Take this medicine by mouth with a glass of water. Follow the directions on the prescription label. If this medicine upsets your stomach, take it with food or milk. Take your medicine at regular intervals. Do not take it more often than directed. Talk to your science editor regarding the use of this medicine in children. Special care may be needed. What side effects may I notice from receiving this medicine? Side effects that you should report to your doctor or health healthcare account manager as soon as possible: allergic reactions like skin rash, itching or hives, swelling of the face, lips, or tongue chest pain fast heartbeat hallucinations seizures vomiting Side effects that usually do not require medical attention (report to your doctor or health healthcare account manager if they continue or are bothersome): headache What may interact with this medicine? Do not take this medicine with any of the following medications: cisapride droperidol flecainide grepafloxacin halofantrine levomethadyl MAOIs like Carbex, Eldepryl, Marplan, Nardil, and Parnate nilotinib pimozide probucol sertindole This medicine may also interact with the following medications: abarelix alcohol contrast dyes dolasetron guanethidine medicines for cancer medicines for depression, anxiety, or psychotic disturbances medicines to treat an irregular heartbeat medicines used for sleep or numbness during surgery or procedure methadone octreotide ondansetron palonosetron phenothiazines like chlorpromazine, mesoridazine, prochlorperazine, thioridazine some medicines for infection like alfuzosin, chloroquine, clarithromycin, levofloxacin, mefloquine, pentamidine, troleandomycin tramadol vardenafil What if I miss a dose? If you miss a dose, take it as soon as you can. If it is almost time for your next dose, take only that dose. Do not take double or extra doses. Where should I keep my medicine? Keep out of the reach of children. Store at room temperature between 15 and 30 degrees C (59 and 86 degrees F). Keep container tightly closed. Throw away any unused medicine after the expiration date. What should I tell my health care provider before I take this medicine? They need to know if you have any of these conditions: heart disease, irregular heartbeat, or previous heart attack liver disease thyroid problem an unusual or allergic reaction to cyclobenzaprine, tricyclic antidepressants, lactose, other medicines, foods, dyes, or preservatives or trying to get breast-feeding What should I watch for while using this medicine? Check with your doctor or health healthcare account manager if your condition does not improve within 1 to 3 weeks. You may get drowsy or dizzy when you first start taking the medicine or change doses. Do not drive, use machinery, or do anything that may be dangerous until you know how the medicine affects you. Stand or sit up slowly. Your mouth may get dry. Drinking water, chewing sugarless gum, or sucking on hard candy may help. You have been given the following additional information: Back Pain W/ Sciatica Hydrocodone Bitartrate, Acetaminophen Oral tablet Cyclobenzaprine Hydrochloride Oral tablet Limit lifting. No strenuous activity. (Electronically signed by Naima Kingston P.A.-C 10/05/2016 22:29)
--- NOTE | 2016-10-05 22:54 | ED MAR SUMMARY ---
..... Medication Administration Record [facility] [address] [place] [address] Patient: NADINE PERRY Visit ID: [id number] 36y, F Weight: 69.8 kg Height/Length: 64 in BMI: 26.4 ALLERGIES: Amytriptilline, ASA, Benzos, Latex, Reglan, Sulfa Drugs, Toradol, Valium, Vicodin, Xanax Given :10/05/2016 Carlene Wise RNorahNNorah Medication Administered: PERCOCET [PO] (OXYCODONE-ACETAMINOPHEN), Dose: 1 tab 5/325 mg Tablets PO. Medication Ordered: Percocet PO 5/325 mg (HIGH ALERT MEDICATION, NOW). Given :10/05/2016 Carlene Wise RNorahNNorah Medication Administered: FLEXERIL [PO] (CYCLOBENZAPRINE HCL), Dose: 10 mg Tablets PO. Medication Ordered: Flexeril PO 10 mg (NOW).
--- NOTE | 2016-10-05 22:54 | ED MED RECONCILIATION SUMMARY ---
Patient: NADINE PERRY Medication Reconciliation Report [facility] VisitID: [id number] [address] [place] [address] 36y, F Registration Date/Time: 10/05/2016 Weight: 69.8 kg Height/Length: 64 in. BMI: 26.4 ALLERGIES: Amytriptilline, ASA, Benzos, Latex, Reglan, Sulfa Drugs, Toradol, Valium, Vicodin, Xanax The patient's Home Medications are listed below: NONE. The source(s) of the original Home Medication information: Not obtained. The following Medications were given to the patient in the Emergency Department: Percocet [PO] PO 1 tab, administered: 10/05/2016 10:35:00 PM Flexeril [PO] PO 10 mg, administered: 10/05/2016 10:35:00 PM The following Medications were prescribed to the patient: Hydrocodone/APAP 7.5mg / 325mg: take 1 orally every 6 hours as needed for pain. Dispense twenty (20). No refill. -- Naima Kingston, P.A.-C Flexeril 10 mg: take 1 orally every 8 hours for 5 days as needed for muscle spasm. Dispense ten (10). No refills. -- Naima Kingston, P.A.-C Ibuprofen 800 mg tablets: take 1 tablet orally every 8 hours as needed for pain. Dispense thirty (30). No refills. -- Naima Kingston, P.A.-C
== END 2016-10-05 22:41 | disposition home or self-care (01) ==
LOC: ED SRH 21:14
DX: M54.41 Lumbago with sciatica, right side (principal); Z88.5 Allergy status to narcotic agent; Z88.2 Allergy status to sulfonamides; Z88.1 Allergy status to other antibiotic agents; Z88.6 Allergy status to analgesic agent

== ENCOUNTER 2016-11-18 18:31 | Emergency (ER) | payer BC ==
--- NOTE | 2016-11-18 20:02 | DIAGNOSTIC IMAGING REPORT ---
PROCEDURE: XR FOOT 3 VIEWS - LEFT INDICATION: TRAUMA/INJURY TECHNIQUE: Three views of the left foot. COMPARISON: 03/07/2012 FINDINGS: Normal mineralization. No fractures. Normal osseous alignment. No suspicious soft-tissue calcification or radiodense foreign bodies. IMPRESSION: 1. Normal left foot.
--- NOTE | 2016-11-18 20:32 | ED ORDER SUMMARY ---
..... Patient: NADINE PERRY OrderSheet [facility] VisitID: [id number] [place] [address] 36y, F Registration Date/Time: 11/18/2016 ORDER SHEET Weight: 69.8 kg (stated) Allergies: Amytriptilline, ASA, Benzos, Latex, Reglan, Sulfa Drugs, Toradol, Valium, Vicodin, Xanax, Flexeril, Tramadol GENERAL ORDERS: Foot 3V Left Urgent (18:45 11/18/2016 HBivens A.R.N.P.) (Ack 18:48 OHernandez) (19:07 AMcQuoid ER Tech1) Orthopedic Shoe (20:32 11/18/2016 HBivens A.R.N.P.) (20:36 KPage-Kuchan R.N.) MEDICATION ORDERS: Hydrocodone-APAP PO 5/325 mg (NOW, HIGH ALERT MEDICATION) (20:32 11/18/2016 HBivens A.R.N.P.) (Ack 20:35 KPage-Kuchan R.N.) IV FLUIDS: ORDER SHEET NOTES: [Electronically signed by Alice Landry.R.N.P. (22:15 11/18/2016)] [Electronically signed by Natacha Sandoval R.N. (23:38 11/18/2016)] [Electronically locked/signed by Natacha Sandoval R.N. (23:38 11/18/2016)]
--- NOTE | 2016-11-18 20:32 | ED ORDER SUMMARY ---
..... Patient: NADINE PERRY OrderSheet [facility] VisitID: [id number] [place] [address] 36y, F Registration Date/Time: 11/18/2016 ORDER SHEET Weight: 69.8 kg (stated) Allergies: Amytriptilline, ASA, Benzos, Latex, Reglan, Sulfa Drugs, Toradol, Valium, Vicodin, Xanax, Flexeril, Tramadol GENERAL ORDERS: Foot 3V Left Urgent (18:45 11/18/2016 HBivens A.R.N.P.) (Ack 18:48 OHernandez) (19:07 AMcQuoid ER Tech1) Orthopedic Shoe (20:32 11/18/2016 HBivens A.R.N.P.) (20:36 KPage-Kuchan R.N.) MEDICATION ORDERS: Hydrocodone-APAP PO 5/325 mg (NOW, HIGH ALERT MEDICATION) (20:32 11/18/2016 HBivens A.R.N.P.) (Ack 20:35 KPage-Kuchan R.N.) IV FLUIDS: ORDER SHEET NOTES: [Electronically signed by Alice Landry.R.N.P. (22:15 11/18/2016)] [Electronically signed by Natacha Sandoval R.N. (23:38 11/18/2016)] [Electronically locked/signed by Natacha Sandoval R.N. (23:38 11/18/2016)]
--- NOTE | 2016-11-18 20:32 | ED CLINICAL REPORT ---
Clinical Report - Physicians/Mid Levels [facility] [address] [place] [address] 11/18/2016 18:33 Patient: NADINE PERRY Time Seen: 18:43; initial patient contact, initial documentation, patient care assumed. Arrived- By private vehicle. Historian- patient. HISTORY OF PRESENT ILLNESS Chief Complaint: Injury to the left foot and great toe. The injury happened about 1 weeks ago. The patient sustained a moderate crush injury- dropped object on foot (couch). Occurred at home. Patient is experiencing moderate pain. Patient denies injury to the head or neck. No other injury. REVIEW OF SYSTEMS The patient complains of pain on weight bearing. She has had swelling. No tingling, weakness, numbness, suspected foreign body or skin laceration. All systems otherwise negative, except as recorded above. PAST HISTORY See nurses notes. PROBLEMS: Sciatica. Intervertebral Disc Disease. Lumbar Radiculopathy. Viral Disease. Crush Injury, Lower Extremity. Tetanus Status. Migraine Headache. Vaginal Discharge. Pelvic Pain. Lifestyle / Substance Problems. Contusion. Lower Extremity Pain. Back Pain. Lumbar Strain. Anxiety Reaction. Depression. Fibromyalgia. Headache. Immunizations. LNMP - Last Normal Menstrual Period. --18:42 Natacha Sandoval R.N. Myofascial Strain [RuleOut]. Abdominal Pain [RuleOut]. --18:42 Natacha Sandoval R.N. ADDITIONAL SURGERIES: Adenoidectomy. . Eye surgery . Fusion. Hemrrhoidectomy. Hysterectomy. Oophorectomy. Salpingectomy. --18:42 Natacha Sandoval R.N. SOCIAL HISTORY Light tobacco smoker. No alcohol use or drug use. Is a local resident. FAMILY HISTORY No significant family medical history. ADDITIONAL NOTES The nursing notes have been reviewed with agreement regarding the chief complaint, HPI, ROS, PMH and patient medications and allergies. PHYSICAL EXAM Vital Signs: 11/18/2016 18:39 BP: 120/81. HR: 86. RR: 15. O2 saturation: 100%. Temp: 98.2 F. Pain level now: 5/10. Have been reviewed as normal and appear to be correct. Appearance: Alert. Oriented X3. No acute distress. Head: Head atraumatic. Eyes: Pupils equal, round and reactive to light. Eyes normal inspection. Respiratory: No respiratory distress. Skin: Skin intact. Skin warm and dry. Extremities: Foot injury present. Left foot: mild tenderness and swelling and small ecchymosis of the proximal aspect of the foot and first toe. Limited weight bearing secondary to pain. Neurovascular intact distally. (tender, swelling and mild bruising noted to 1st toe and 1st metatarsal area). No erythema, laceration, abrasion, puncture wound or foreign body. No deformity. No ankle injury. Foot and ankle exam otherwise negative. Extremities otherwise negative. Gait: Abnormal gait. Limping gait. Neuro, Vascular and Tendons: Vascular status intact. Sensation intact. Motor intact. Tendon function intact. Neuro: Oriented X 3. No motor deficit. No sensory deficit. Note: isolated injury to foot. LABS, X-RAYS, AND EKG X-Rays: Left foot negative. Lt Foot X-ray: (IMPRESSION: 1. Normal left foot. Electronically Final signed by:Nat Clark MD 11/18/2016 8:03:05 PM). PROGRESS AND PROCEDURES Course of Care: 1899. Called radiology for reads, still waiting for reports. Patient counseled in person regarding the patient's stable condition, test results and diagnosis. 20:25. Differential Diagnosis: Other possible considerations: foot fx vs contusion. Above considerations are based on history, physical exam and X-Ray data. Differential diagnosis was discussed with patient. Disposition: Discharged home in good and improved condition (20:32). Condition: good and stable. CLINICAL IMPRESSION Single contusion to the right great toe.No hematoma or skin abrasion. Crush injury to the right great toe. INSTRUCTIONS Wear post-op shoe as needed. Warnings: GENERAL WARNINGS: Return or contact your physician immediately if your condition worsens or changes unexpectedly, if not improving as expected, or if other problems arise. Specifically return if problem worsens. Prescription Medications: Naproxen 500 mg tablets: take 1 orally every 12 hours as needed for pain. Dispense twenty (20). No refills. Percocet 5 mg/325 mg: take 1 tablet orally every 6 hours as needed for pain. Dispense five (5). No refill. Follow-up: Follow up with your doctor in about one week as needed. Call for an appointment. Summary of care provided to patient. Understanding of the discharge instructions verbalized by patient. (Electronically signed by Alice Landry A.R.N.P. 11/18/2016 22:15)
--- NOTE | 2016-11-18 20:32 | ED NURSING NOTES ---
Clinical Report - Nurses [facility] [address] [place] [address] 11/18/2016 18:33 Patient: NADINE PERRY TRIAGE Triage time 18:39 Nov 18 2016. Chief Complaint: LEFT LOWER EXTREMITY PAIN. Location of symptoms- left foot and left great toe (Pt had a couch dropped on her right foot a week ago, cont to have pain to great toe and base of great toe). Alert. No acute distress. SEPSIS SCREEN: Sepsis Screen. Negative (no infection suspected/documented). ANIRUDH COMA SCORE: [place] Coma Scale: 15- eyes open spontaneously (4); best verbal response- oriented x 4 (5); best motor response- obeys commands (6). --18:45 Natacha Sandoval R.N. 18:39 11/18/16. BP: 120/81. HR: 86. RR: 15. O2 saturation: 100%. Temp: 98.2 F. Pain level now: 5/10. --18:45 Natacha Sandoval R.N. Weight: 69.8 kg stated. Height/Length: 64 inches Per Patient. BMI: 26.4. --18:40 Natacha Sandoval R.N. Medications None. --18:41 Natacha Sandoval R.N. Allergies Amytriptilline. ASA. Benzos. Latex. Reglan. Sulfa Drugs. Toradol. Valium. --18:41 Natacha Sandoval R.N. Vicodin. Xanax. --18:41 Natacha Sandoval R.N. Flexeril. --18:41 Natacha Sandoval R.N. Tramadol. --20:46 Natacha Sandoval R.N. Medication/allergy information source: the patient. --18:45 Natacha Sandoval R.N. History Arrived by private vehicle. Historian: patient. Accompanied by family. Injury occurred. This occurred (1 weeks ago). She has had trouble walking. Treatment CLINICAL ASSISTANT: Ice and took ibuprofen. PAST MEDICAL HX: Tetanus status: up-to-date. Immunizations: up-to-date. The patient has had a hysterectomy. SOCIAL HX: Smoker- current status unknown (cigarette). No alcohol use or drug use. No infectious disease exposure. ABUSE ASSESSMENT: No report of abuse. SELF HARM ASSESSMENT: A self harm assessment was performed. The patient answered "no" to the question "Do you have thoughts of harming or killing yourself?". FALL RISK ASSESSMENT: Fall risk assessment completed. No fall risk identified. NUTRITIONAL RISK ASSESSMENT: The nutritional risk assessment revealed no deficiencies. FUNCTIONAL ASSESSMENT: Functional assessment: no impairments noted. LEARNING NEEDS ASSESSMENT: The learning needs assessment revealed no barriers. SKIN INTEGRITY ASSESSMENT: Skin integrity risk assessment completed. No skin integrity risk identified. --18:45 Natacha Sandoval R.N. PROBLEMS: Sciatica. Intervertebral Disc Disease. Lumbar Radiculopathy. Viral Disease. Crush Injury, Lower Extremity. Tetanus Status. Migraine Headache. Vaginal Discharge. Pelvic Pain. Lifestyle / Substance Problems. Contusion. Lower Extremity Pain. Back Pain. Lumbar Strain. Anxiety Reaction. Depression. Fibromyalgia. Headache. Immunizations. LNMP - Last Normal Menstrual Period. --18:42 Natacha Sandoval R.N. Myofascial Strain [RuleOut]. Abdominal Pain [RuleOut]. --18:42 Natacha Sandoval R.N. ADDITIONAL SURGERIES: Adenoidectomy. . Eye surgery . Fusion. Hemrrhoidectomy. Hysterectomy. Oophorectomy. Salpingectomy. --18:42 Natacha Sandoval R.N. Interventions ID band on patient. To treatment room. --18:45 Natacha Sandoval R.N. PHYSICAL ASSESSMENT Ambulatory to room. GENERAL / NEURO / PSYCH: Oriented X 4. Alert. Appears in no acute distress. EXTREMITIES: Extremity pulses are within normal limits. Extremities exhibit normal ROM. Neuro-vascular status intact to the extremity. No lower extremity edema. Normal gait. Right foot: tenderness of the foot. SKIN: Skin intact. Skin is warm and dry. --18:45 Natacha Sandoval R.N. NURSING PROGRESS NOTES Call light placed in reach. Side rails up x 1. Bed placed in lowest position. Brakes of bed on. --18:45 Natacha Sandoval R.N. Patient waiting for radiology results. --19:07 Natacha Sandoval R.N. ( cont to wait on rad read, SENIOR DATASTAGE DEVELOPER called to inquire, pt updated). --19:22 Natacha Sandoval R.N. 20:47 11/18/2016 Hydrocodone-APAP PO 5/325 mg (NOW, HIGH ALERT MEDICATION) was refused by patient because of a remembered allergy. Natacha Sandoval --20:52 Natacha Sandoval R.N. DISPOSITION / DISCHARGE No learning barriers present. Discharge instructions provided and reviewed with the patient. Reviewed medication(s) side effects, precautions, dosing and course information. Prescription(s) given to the patient. Patient verbalized understanding. Written instructions provided in Irish. The patient was discharged by the nurse practitioner. She was discharged home and accompanied by family. She left the Emergency Department ambulatory and via private vehicle. Family member driving. --20:58 Natacha Sandoval R.N. 20:57 11/18/16. BP: 111/76. HR: 72. RR: 15. O2 saturation: 100%. Temp: deferred. Pain level now: 5/10. --20:58 Natacha Sandoval R.N. Locked/Released at 11/18/2016 23:38 by Natacha Sandoval R.N.
--- NOTE | 2016-11-18 20:32 | ED NURSING NOTES ---
Clinical Report - Nurses [facility] [address] [place] [address] 11/18/2016 18:33 Patient: NADINE PERRY TRIAGE Triage time 18:39 Nov 18 2016. Chief Complaint: LEFT LOWER EXTREMITY PAIN. Location of symptoms- left foot and left great toe (Pt had a couch dropped on her right foot a week ago, cont to have pain to great toe and base of great toe). Alert. No acute distress. SEPSIS SCREEN: Sepsis Screen. Negative (no infection suspected/documented). ANIRUDH COMA SCORE: [place] Coma Scale: 15- eyes open spontaneously (4); best verbal response- oriented x 4 (5); best motor response- obeys commands (6). --18:45 Natacha Sandoval R.N. 18:39 11/18/16. BP: 120/81. HR: 86. RR: 15. O2 saturation: 100%. Temp: 98.2 F. Pain level now: 5/10. --18:45 Natacha Sandoval R.N. Weight: 69.8 kg stated. Height/Length: 64 inches Per Patient. BMI: 26.4. --18:40 Natacha Sandoval R.N. Medications None. --18:41 Natacha Sandoval R.N. Allergies Amytriptilline. ASA. Benzos. Latex. Reglan. Sulfa Drugs. Toradol. Valium. --18:41 Natacha Sandoval R.N. Vicodin. Xanax. --18:41 Natacha Sandoval R.N. Flexeril. --18:41 Natacha Sandoval R.N. Tramadol. --20:46 Natacha Sandoval R.N. Medication/allergy information source: the patient. --18:45 Natacha Sandoval R.N. History Arrived by private vehicle. Historian: patient. Accompanied by family. Injury occurred. This occurred (1 weeks ago). She has had trouble walking. 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 PAST MEDICAL HX: Tetanus status: up-to-date. Immunizations: up-to-date. The patient has had a hysterectomy. SOCIAL HX: Smoker- current status unknown (cigarette). No alcohol use or drug use. No infectious disease exposure. ABUSE ASSESSMENT: No report of abuse. SELF HARM ASSESSMENT: A self harm assessment was performed. The patient answered "no" to the question "Do you have thoughts of harming or killing yourself?". FALL RISK ASSESSMENT: Fall risk assessment completed. No fall risk identified. NUTRITIONAL RISK ASSESSMENT: The nutritional risk assessment revealed no deficiencies. FUNCTIONAL ASSESSMENT: Functional assessment: no impairments noted. LEARNING NEEDS ASSESSMENT: The learning needs assessment revealed no barriers. SKIN INTEGRITY ASSESSMENT: Skin integrity risk assessment completed. No skin integrity risk identified. --18:45 Natacha Sandoval R.N. PROBLEMS: Sciatica. Intervertebral Disc Disease. Lumbar Radiculopathy. Viral Disease. Crush Injury, Lower Extremity. Tetanus Status. Migraine Headache. Vaginal Discharge. Pelvic Pain. Lifestyle / Substance Problems. Contusion. Lower Extremity Pain. Back Pain. Lumbar Strain. Anxiety Reaction. Depression. Fibromyalgia. Headache. Immunizations. LNMP - Last Normal Menstrual Period. --18:42 Natacha Sandoval R.N. Myofascial Strain [RuleOut]. Abdominal Pain [RuleOut]. --18:42 Natacha Sandoval R.N. ADDITIONAL SURGERIES: Adenoidectomy. . Eye surgery . Fusion. Hemrrhoidectomy. Hysterectomy. Oophorectomy. Salpingectomy. --18:42 Natacha Sandoval R.N. Interventions ID band on patient. To treatment room. --18:45 Natacha Sandoval R.N. PHYSICAL ASSESSMENT Ambulatory to room. GENERAL / NEURO / PSYCH: Oriented X 4. Alert. Appears in no acute distress. EXTREMITIES: Extremity pulses are within normal limits. Extremities exhibit normal ROM. Neuro-vascular status intact to the extremity. No lower extremity edema. Normal gait. Right foot: tenderness of the foot. SKIN: Skin intact. Skin is warm and dry. --18:45 Natacha Sandoval R.N. NURSING PROGRESS NOTES Call light placed in reach. Side rails up x 1. Bed placed in lowest position. Brakes of bed on. --18:45 Natacha Sandoval R.N. Patient waiting for radiology results. --19:07 Natacha Sandoval R.N. ( cont to wait on rad read, ACCOUNTING METHODS ANALYST called to inquire, pt updated). --19:22 Natacha Sandoval R.N. 20:47 11/18/2016 Hydrocodone-APAP PO 5/325 mg (NOW, HIGH ALERT MEDICATION) was refused by patient because of a remembered allergy. Natacha Sandoval --20:52 Natacha Sandoval R.N. DISPOSITION / DISCHARGE No learning barriers present. Discharge instructions provided and reviewed with the patient. Reviewed medication(s) side effects, precautions, dosing and course information. Prescription(s) given to the patient. Patient verbalized understanding. Written instructions provided in Persian. The patient was discharged by the nurse practitioner. She was discharged home and accompanied by family. She left the Emergency Department ambulatory and via private vehicle. Family member driving. --20:58 Natacha Sandoval R.N. 20:57 11/18/16. BP: 111/76. HR: 72. RR: 15. O2 saturation: 100%. Temp: deferred. Pain level now: 5/10. --20:58 Natacha Sandoval R.N. Locked/Released at 11/18/2016 23:38 by Natacha Sandoval R.N.
--- NOTE | 2016-11-18 23:38 | ED MAR SUMMARY ---
..... Medication Administration Record [facility] [address] [place], [place] [id number] Patient: NADINE PERRY Visit ID: [id number] 36y, F Weight: 69.8 kg Height/Length: 64 in BMI: 26.4 ALLERGIES: Flexeril, Amytriptilline, ASA, Benzos, Latex, Reglan, Sulfa Drugs, Toradol, Valium, Vicodin, Xanax, Tramadol
--- NOTE | 2016-11-18 23:38 | ED MAR SUMMARY ---
..... Medication Administration Record [facility] [address], [place] [id number] Patient: NADINE PERRY Visit ID: [id number] 36y, F Weight: 69.8 kg Height/Length: 64 in BMI: 26.4 ALLERGIES: Flexeril, Amytriptilline, ASA, Benzos, Latex, Reglan, Sulfa Drugs, Toradol, Valium, Vicodin, Xanax, Tramadol
--- NOTE | 2016-11-18 23:38 | ED MED RECONCILIATION SUMMARY ---
Patient: NADINE PERRY Medication Reconciliation Report [facility] VisitID: [id number] [address] [place] [address] 36y, F Registration Date/Time: 11/18/2016 Weight: 69.8 kg Height/Length: 64 in. BMI: 26.4 ALLERGIES: Amytriptilline, ASA, Benzos, Flexeril, Latex, Reglan, Sulfa Drugs, Toradol, Tramadol, Valium, Vicodin, Xanax The patient's Home Medications are listed below: NONE. The source(s) of the original Home Medication information: patient The following Medications were given to the patient in the Emergency Department: None. The following Medications were prescribed to the patient: Naproxen 500 mg tablets: take 1 orally every 12 hours as needed for pain. Dispense twenty (20). No refills. -- Alice Landry, A.R.N.P. Percocet 5 mg/325 mg: take 1 tablet orally every 6 hours as needed for pain. Dispense five (5). No refill. -- Alice Landry, A.R.N.P.
--- NOTE | 2016-11-18 23:38 | ED MED RECONCILIATION SUMMARY ---
Patient: NADINE PERRY Medication Reconciliation Report [facility] VisitID: [id number] [address] [place] [address] 36y, F Registration Date/Time: 11/18/2016 Weight: 69.8 kg Height/Length: 64 in. BMI: 26.4 ALLERGIES: Amytriptilline, ASA, Benzos, Flexeril, Latex, Reglan, Sulfa Drugs, Toradol, Tramadol, Valium, Vicodin, Xanax The patient's Home Medications are listed below: NONE. The source(s) of the original Home Medication information: patient The following Medications were given to the patient in the Emergency Department: None. The following Medications were prescribed to the patient: Naproxen 500 mg tablets: take 1 orally every 12 hours as needed for pain. Dispense twenty (20). No refills. -- Alice Landry, A.R.N.P. Percocet 5 mg/325 mg: take 1 tablet orally every 6 hours as needed for pain. Dispense five (5). No refill. -- Alice Landry, A.R.N.P.
--- NOTE | 2016-11-18 23:38 | ED DISCHARGE INSTRUCTIONS ---
Patient: NADINE PERRY General Instructions [facility] VisitID: [id number] [place] [address] 36y, F Registration Date/Time: 11/18/2016 Single contusion to the right great toe.No hematoma or skin abrasion. Crush injury to the right great toe. INSTRUCTIONS Wear post-op shoe as needed. Warnings: GENERAL WARNINGS: Return or contact your physician immediately if your condition worsens or changes unexpectedly, if not improving as expected, or if other problems arise. Specifically return if problem worsens. Prescription Medications: Naproxen 500 mg tablets: take 1 orally every 12 hours as needed for pain. Dispense twenty (20). No refills. Percocet 5 mg/325 mg: take 1 tablet orally every 6 hours as needed for pain. Dispense five (5). No refill. Follow-up: Follow up with your doctor in about one week as needed. Call for an appointment. Summary of care provided to patient. Understanding of the discharge instructions verbalized by patient. ADDITIONAL INFORMATION Contusion,Soft Tissue You have a CONTUSION, which is a bruise with swelling and some bleeding under the skin. There are no broken bones. This injury takes a few days to a few weeks to heal. Home Care: 1) Keep the injured part elevated to reduce pain and swelling. This is especially important during the first 48 hours. 2) Make an ice pack (ice cubes in a plastic bag, wrapped in a towel) and apply for 20 minutes every 1-2 hours the first day. Continue this 3-4 times a day until the pain and swelling goes away. 3) You may use acetaminophen (Tylenol) or ibuprofen (Motrin, Advil) to control pain, unless another pain medicine was prescribed. [ NOTE : If you have chronic liver or kidney disease or ever had a stomach ulcer or GI bleeding, talk with your doctor before using these medicines.] Follow Up with your doctor or this facility if you are not improving within the next THREE days. [NOTE: If X-rays were taken, they will be reviewed by a radiologist. You will be notified of any new findings that may affect your care.] Get Prompt Medical Attention if any of the following occur: -- Pain or swelling increases -- Injured arm or leg becomes cold, blue, numb or tingly -- Redness, warmth or drainage from the skin Crush Injury, Foot (No Fx) A crush injury to your foot causes local pain, swelling, and sometimes bruising. There are no broken bones. This injury takes from a few days to a few weeks to heal. If the toenail has been severely injured, it may fall off in 12 weeks. A new one will usually start to grow back within a month. Home care The following guidelines will help you care for your wound at home: You may be given a splint, cast, shoe, or boot to prevent movement at the injury. Unless you were told otherwise, use crutches or a walker anddo notbear weight on the injured foot until cleared by your doctor to do so. (Crutches and walkers can be rented at many pharmacies and surgical/orthopedic supply stores). Do not put weight on a splint; it will break. Keep your leg elevated to reduce pain and swelling. When sleeping, place a pillow under the injured leg. When sitting, support the injured leg so it is level with your waist. This is very important during the first 48 hours. Apply an ice pack (ice cubes in a plastic bag, wrapped in a towel) over the injured area for 20 minutes every 12 hours the first day for pain relief. Continue this 34 times a day until the pain and swelling goes away. You may use acetaminophen or ibuprofen to control pain, unless another pain medicine was prescribed.If you have chronic liver or kidney disease or ever had a stomach ulcer or GI bleeding, talk with your doctor before using these medicines. Keep the splint/cast/boot/shoe dry. When bathing, protect it with a large plastic bag, rubber-banded at the top end. If a fiberglass splint/cast or boot gets wet, you can dry it with a hair-dryer. Unless told otherwise, you can remove a boot or shoe to bathe. If your injury includes exposed cuts or scrapes, clean these daily with soap and water. Apply antibiotic ointment. Watch for the signs of infection listed below. Follow-up care Follow up with your doctor as advised. Return sooner if you are not starting to improve within the nextthreedays. If you were given a splint, it may be changed to a cast or boot at your follow-up visit. Note:X-rays will be reviewed by a radiologist. You will be notified of any new findings that may affect your care. When to seek medical care Get prompt medical attention if any of the following occur: The plaster cast or splint becomes wet or soft The fiberglass cast or splint remains wet for more than 24 hours Increased tightness or pain under the cast or splint Toes become swollen, cold, blue, numb, or tingly Redness, warmth, swelling, drainage from the wound, or foul odor from a cast or splint Fever of 100.4F(38C) or higher, or as directed by your health care provider Naproxen Sodium Oral tablet What is this medicine? NAPROXEN (na PROX en) is a non-steroidal anti-inflammatory drug (NSAID). It is used to reduce swelling and to treat pain. This medicine may be used for dental pain, headache, or painful monthly periods. It is also used for painful joint and muscular problems such as arthritis, tendinitis, bursitis, and gout. How should I use this medicine? Take this medicine by mouth with a glass of water. Follow the directions on the prescription label. Take it with food if your stomach gets upset. Try to not lie down for at least 10 minutes after you take it. Take your medicine at regular intervals. Do not take your medicine more often than directed. Long-term, continuous use may increase the risk of heart attack or stroke. A special MedGuide will be given to you by the pharmacist with each prescription and refill. Be sure to read this information carefully each time. Talk to your flask handler regarding the use of this medicine in children. Special care may be needed. What side effects may I notice from receiving this medicine? Side effects that you should report to your doctor or health career transition specialist as soon as possible: black or bloody stools, blood in the urine or vomit blurred vision chest pain difficulty breathing or wheezing nausea or vomiting severe stomach pain skin rash, skin redness, blistering or peeling skin, hives, or itching slurred speech or weakness on one side of the body swelling of eyelids, throat, lips unexplained weight gain or swelling unusually weak or tired yellowing of eyes or skin Side effects that usually do not require medical attention (report to your doctor or health career transition specialist if they continue or are bothersome): constipation headache heartburn What may interact with this medicine? alcohol aspirin cidofovir diuretics lithium methotrexate other drugs for inflammation like ketorolac or prednisone pemetrexed probenecid warfarin What if I miss a dose? If you miss a dose, take it as soon as you can. If it is almost time for your next dose, take only that dose. Do not take double or extra doses. Where should I keep my medicine? Keep out of the reach of children. Store at room temperature between 15 and 30 degrees C (59 and 86 degrees F). Keep container tightly closed. Throw away any unused medicine after the expiration date. What should I tell my health care provider before I take this medicine? They need to know if you have any of these conditions: asthma cigarette smoker drink more than 3 alcohol containing drinks a day heart disease or circulation problems such as heart failure or leg edema (fluid retention) high blood pressure kidney disease liver disease stomach bleeding or ulcers an unusual or allergic reaction to naproxen, aspirin, other NSAIDs, other medicines, foods, dyes, or preservatives or trying to get breast-feeding What should I watch for while using this medicine? Tell your doctor or health career transition specialist if your pain does not get better. Talk to your doctor before taking another medicine for pain. Do not treat yourself. This medicine does not prevent heart attack or stroke. In fact, this medicine may increase the chance of a heart attack or stroke. The chance may increase with longer use of this medicine and in people who have heart disease. If you take aspirin to prevent heart attack or stroke, talk with your doctor or health career transition specialist. Do not take other medicines that contain aspirin, ibuprofen, or naproxen with this medicine. Side effects such as stomach upset, nausea, or ulcers may be more likely to occur. Many medicines available without a prescription should not be taken with this medicine. This medicine can cause ulcers and bleeding in the stomach and intestines at any time during treatment. Do not smoke cigarettes or drink alcohol. These increase irritation to your stomach and can make it more susceptible to damage from this medicine. Ulcers and bleeding can happen without warning symptoms and can cause . You may get drowsy or dizzy. Do not drive, use machinery, or do anything that needs mental alertness until you know how this medicine affects you. Do not stand or sit up quickly, especially if you are an older patient. This reduces the risk of dizzy or fainting spells. This medicine can cause you to bleed more easily. Try to avoid damage to your teeth and gums when you brush or floss your teeth. Oxycodone Hydrochloride, Acetaminophen Oral tablet What is this medicine? ACETAMINOPHEN; OXYCODONE (a set a KHADRA bishop fen; ox i KOE done) is a pain reliever. It is used to treat mild to moderate pain. How should I use this medicine? Take this medicine by mouth with a full glass of water. Follow the directions on the prescription label. Take your medicine at regular intervals. Do not take your medicine more often than directed. Talk to your flask handler regarding the use of this medicine in children. Special care may be needed. Patients over 65 years old may have a stronger reaction and need a smaller dose. What side effects may I notice from receiving this medicine? Side effects that you should report to your doctor or health career transition specialist as soon as possible: allergic reactions like skin rash, itching or hives, swelling of the face, lips, or tongue breathing difficulties, wheezing confusion light headedness or fainting spells severe stomach pain yellowing of the skin or the whites of the eyes Side effects that usually do not require medical attention (report to your doctor or health career transition specialist if they continue or are bothersome): dizziness drowsiness nausea vomiting What may interact with this medicine? alcohol antihistamines barbiturates like amobarbital, butalbital, butabarbital, methohexital, pentobarbital, phenobarbital, thiopental, and secobarbital benztropine drugs for bladder problems like solifenacin, trospium, oxybutynin, tolterodine, hyoscyamine, and methscopolamine drugs for breathing problems like ipratropium and tiotropium drugs for certain stomach or intestine problems like propantheline, homatropine methylbromide, glycopyrrolate, atropine, belladonna, and dicyclomine general anesthetics like etomidate, ketamine, nitrous oxide, propofol, desflurane, enflurane, halothane, isoflurane, and sevoflurane medicines for depression, anxiety, or psychotic disturbances medicines for sleep muscle relaxants naltrexone narcotic medicines (opiates) for pain phenothiazines like perphenazine, thioridazine, chlorpromazine, mesoridazine, fluphenazine, prochlorperazine, promazine, and trifluoperazine scopolamine tramadol trihexyphenidyl What if I miss a dose? If you miss a dose, take it as soon as you can. If it is almost time for your next dose, take only that dose. Do not take double or extra doses. Where should I keep my medicine? Keep out of the reach of children. This medicine can be abused. Keep your medicine in a safe place to protect it from theft. Do not share this medicine with anyone. Selling or giving away this medicine is dangerous and against the law. Store at room temperature between 20 and 25 degrees C (68 and 77 degrees F). Keep container tightly closed. Protect from light. This medicine may cause accidental overdose and if it is taken by other adults, children, or pets. Flush any unused medicine down the toilet to reduce the chance of harm. Do not use the medicine after the expiration date. What should I tell my health care provider before I take this medicine? They need to know if you have any of these conditions: brain tumor Crohn's disease, inflammatory bowel disease, or ulcerative colitis drink more than 3 alcohol containing drinks per day drug abuse or addiction head injury heart or circulation problems kidney disease or problems going to the bathroom liver disease lung disease, asthma, or breathing problems an unusual or allergic reaction to acetaminophen, oxycodone, other opioid analgesics, other medicines, foods, dyes, or preservatives or trying to get breast-feeding What should I watch for while using this medicine? Tell your doctor or health career transition specialist if your pain does not go away, if it gets worse, or if you have new or a different type of pain. You may develop tolerance to the medicine. Tolerance means that you will need a higher dose of the medication for pain relief. Tolerance is normal and is expected if you take this medicine for a long time. Do not suddenly stop taking your medicine because you may develop a severe reaction. Your body becomes used to the medicine. This does NOT mean you are addicted. Addiction is a behavior related to getting and using a drug for a non-medical reason. If you have pain, you have a medical reason to take pain medicine. Your doctor will tell you how much medicine to take. If your doctor wants you to stop the medicine, the dose will be slowly lowered over time to avoid any side effects. You may get drowsy or dizzy. Do not drive, use machinery, or do anything that needs mental alertness until you know how this medicine affects you. Do not stand or sit up quickly, especially if you are an older patient. This reduces the risk of dizzy or fainting spells. Alcohol may interfere with the effect of this medicine. Avoid alcoholic drinks. There are different types of narcotic medicines (opiates) for pain. If you take more than one type at the same time, you may have more side effects. Give your health care provider a list of all medicines you use. Your doctor will tell you how much medicine to take. Do not take more medicine than directed. Call emergency for help if you have problems breathing. The medicine will cause constipation. Try to have a bowel movement at least every 2 to 3 days. If you do not have a bowel movement for 3 days, call your doctor or health career transition specialist. Do not take Tylenol (acetaminophen) or medicines that have acetaminophen with this medicine. Too much acetaminophen can be very dangerous. Many nonprescription medicines contain acetaminophen. Always read the labels carefully to avoid taking more acetaminophen. You have been given the following additional information: Contusion, Soft Tissue Crush Injury, Foot/Toe Naproxen Sodium Oral tablet Oxycodone Hydrochloride, Acetaminophen Oral tablet (Electronically signed by Alice Landry A.R.N.P. 11/18/2016 22:15)
== END 2016-11-18 20:56 | disposition home or self-care (01) ==
LOC: ED SRH 18:31
DX: S97.112A Crushing injury of left great toe, initial encounter (principal); W23.0XXA Caught, crushed, jammed, or pinched between moving objects, initial encounter; Y93.9 Activity, unspecified; Y92.019 Unspecified place in single-family (private) house as the place of occurrence of the external cause; Y99.9 Unspecified external cause status; F17.210 Nicotine dependence, cigarettes, uncomplicated; Z91.040 Latex allergy status; Z88.2 Allergy status to sulfonamides; Z88.5 Allergy status to narcotic agent